=== PATIENT | male | born 1945 | race Caucasian/White ===

== ENCOUNTER 2017-05-11 17:47 | Inpatient (IN) | payer MEDICARE, MEDICAID, OTHER ==
[~2017-05-11] VITALS: Ht 182.9 cm; Wt 79.6 kg
[~2017-05-11 17:47] MED LIST: B12-1CHW SL; CHOL1CAP24 PO; DOXE25CA2 PO; FURO20 PO; LEVO137T2 PO; LIOT5; LORA0.5T PO
[2017-05-11] MEDS ORDERED: ALUMINUM/MAGNESIUM/SIMETH 30 ML CUP PO PRN (23:15)
[2017-05-11] MEDS ORDERED: LORazepam 2 MG/ML VIAL - age > 65 yrs IM PRN (23:15)
[2017-05-11] MEDS ORDERED: diphenhydrAMINE HCL 50 MG/ML VIAL - HS PRN IM (23:15)
[2017-05-11] MEDS ORDERED: diphenhydrAMINE HCL 50 MG CAP - HS PRN PO (23:15)
[2017-05-11] MEDS ORDERED: MAGNESIUM HYDROXIDE SUSP 30 ML CUP PO PRN (23:15)
[2017-05-11] MEDS ORDERED: ACETAMINOPHEN 325 MG TAB PO PRN (23:15)
[2017-05-11 23:54] LABS: BACTERIA, URINE RARE /hpf; BLOOD, URINE SMALL (NEG); COMMENT (UR) CULT NOT INDICATED; CULTURE IF INDICATED CULT NOT INDICATED; GLUCOSE,URINE NEG (NEG); GRANULAR CAST, URINE 1 /lpf; KETONE, URINE NEG (NEG); MUCUS URINE FEW /lpf (OCC); NITRITE,URINE NEG (NEG); URINE COLOR COLORLESS (YELLW/STRAW)
[2017-05-12] MEDS: LORazepam 0.5 MG TAB age > 65 yrs PO PRN (00:51)
[2017-05-12 03:10] VITALS: BP 152/66; PULSE 75; RESP 18; TEMP 97.6; O2SAT 95
[2017-05-12 05:46] VITALS: BP 111/56; PULSE 57; RESP 18; TEMP 98.3; O2SAT 95
--- NOTE | 2017-05-12 08:05 | HHI.HP ---
Provisional Diagnosis Admission Date May 11, 2017 at 22:30 [place] I. His depressive disorder, recurrent, severe without psychotic features Certification of Person's Competence To Provide Express and Informed Consent I have personally examined Enoc Acosta , a person being served at [facility] on, May 12, 2017 07:48. Express and informed consent means consent voluntarily given in writing, by a competent person, after sufficient explanation and disclosure of the subject matter involved to enable the person to make a knowing and willful decision without any element of force, fraud, deceit, duress, or other form of constraint or coercion. This person is 18 years of age or older, is not now known to be incompetent to consent to treatment with a guardian advocate, and does not have a health care surrogate or proxy currently making medical treatment decisions. I have found this person to be one of the following: [x] Competent to provide express and informed consent, as defined above, for voluntary admission to this facility and is competent to provide express and informed consent for treatment. He/she has the consistent capacity to make well reasoned, willful, and knowing decisions concerning his or her medical or mental health treatment. The person fully and consistently understands the purpose of the admission for examination/placement and is fully capable of personally exercising all rights assured under [place] Incompetent to provide express and informed consent to voluntary admission, and this is incompetent to provide express and informed consent to treatment. The person must be transferred to involuntary status and a petition for a guardian advocate filed with the Circuit Court. [] Refusing to provide express and informed consent to voluntary admission but is competent to provide express and informed consent for treatment. The person must be discharged or transferred to involuntary status. Form shall be completed within 24 hours of a person's arrival at the receiving facility and filed in the clinical record of each person: 1. Admitted on a voluntary basis 2. Permitted to provide express and informed consent to his/her own treatment 3. Allowed to transfer from involuntary to voluntary status 4. Prior to permitting a person to consent to his or her own treatment after having been previously found incompetent to consent to treatment. History of Present Illness Capacity: Has Capacity Psych Chief Complaint: recent suicide attempt via overdose HPI Patient is a 71-year-old man, single, no children, retired on Social Security income, living with brother, past psychiatric history of depression, anxiety disorder, panic disorder, 1 previous psychiatric hospitalization (to 713 ), one previous suicide attempt via overdose (2013), no previous history of self -interest behavior, was transferred from [facility] after recent suicide attempt via overdose with lorazepam and under Leach act for the same. Patient was transferred to the inpatient medical/psychiatry unit for further evaluation and management. Patient was seen with nurse today lying in hospital bed, cooperative interview, noted to be tearful at times. Patient states that he had a recent suicide attempt via overdose with lorazepam in his home stating "something told me I can't take this anymore" and refers to his recent suicide attempt as an act of desperation. Patient reports that for the past year he had been feeling sad and depressed but worsening over the past 1-2 months, with decreased sleep, appetite, energy, concentration, pleasure in hobbies, as well as feeling hopeless and helpless, with decreased maintenance of hygiene, and having suicidal ideations for the 1-1/2 months: No method or plan. Patient states that he had been feeling more more overwhelmed due to news of many family members becoming sick due to medical issues. 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 Patient recalls that he has the overdose of having taken the bottle of Ativan and had taken all of the pills and writing a suicide note which he left next to his bed which upon his brother walked into the room and found him lying on the bed and had noticed a note which he then called 911. Patient states that he will woken up in the hospital and feels tremendous amount of guilt due to this recent event. She currently reports feeling "better" but continues to feel sad and depressed along with suicide ideations, but denies any HI, AVH or delusions. Past psychiatric history: Previous psychiatric diagnoses of anxiety, depression , panic disorder, previous psychiatric authorization in 2013 for depression, previous suicide attempts but this is a 15 via overdose, no history of self- injurious behavior. Previous medication trials include Lexapro, Haldol, Ativan. Family psychiatric history: Aunt with depression, alcohol with Parkinson's disease, denies any suicides in the family. Substance use disorder: Tobacco (+), alcohol use "sell them", last time being 10 years ago. Patient denies any use of illicit drug use. Past medical history, hypothyroidism, fibromyalgia, benign prostatic hyperplasia Allergies, NKDA Social history: Single, no children, originally from [place], living in [place] since 1980, retired on Social Security income, no background, no legal history, no firearms in the home. Patient lives with his older brother Pacheco Anderson does not want him involved in his care at this time but agrees to have his other brother Terry acosta to be the certified personal chef. Yarsanism: Anglican Review of Systems Except as stated in HPI: all other systems reviewed are Neg Past Psych History Violence risk - others (6 mos) Low Violence risk - self (6 mos) Elevated risk due to recent suicide attempt and history of a prior suicide attempt. Substance Abuse History Drugs/Alcohol past 12 months Tobacco (+), alcohol use "sell them", last time being 10 years ago. Patient denies any use of illicit drug use. Past Family Social History Coded Allergies: No Known Allergies (Verified , 01/20/15) Reported Medications Liothyronine Sodium (Cytomel) Unknown Strength Tab, .XX DIRECTED, TAB 01/21/15 Methylcobalamin (V59-Iihulg) 1 Mg Chw, 6000 MCG SL DAILY, TAB 01/20/15 Cholecalciferol (Vitamin D3) 10,000 Unt Cap, 0.5 ML PO MWF 01/20/15 Levothyroxine Sodium (Levothyroxine 137 mcg) 137 Mcg Tab, 137 MCG PO DAILY, TAB 01/20/15 Doxepin 25 mg (Doxepin 25 mg) 25 Mg Cap, 10 MG PO DAILY, CAP 01/20/15 Doxepin 25 mg (Doxepin 25 mg) 25 Mg Cap, 25 MG PO DAILY, CAP 01/20/15 Lorazepam (Lorazepam) 0.5 Mg Tab, 0.5 MG PO BID, TAB 01/20/15 Furosemide (Lasix 20 Mg Tab) 20 Mg Tab, 20 MG PO DAILY, TAB 01/20/15 Current Medications Medications (Trade) Dose Ordered Sig/Ymlene Route Start Time Stop Time Status Last Admin (Ativan) 0.5 mg Q12H PRN PO 05/11/17 23:15 05/12/17 00:51 (Ativan Inj) 0.5 mg Q12H PRN IM 05/11/17 23:15 (Benadryl) 50 mg HS PRN PO 05/11/17 23:15 (Benadryl Inj) 50 mg HS PRN IM 05/11/17 23:15 (Tylenol) 650 mg Q4H PRN PO 05/11/17 23:15 (Milk Of Magnesia Liq) 30 ml DAILY PRN PO 05/11/17 23:15 (Mag-Al Plus Susp Liq) 30 ml Q6H PRN PO 05/11/17 23:15 (Habitrol 21 Mg Patch.24 Hr) 1 patch DAILY T-DERMAL 05/12/17 09:00 Miscellaneous Information 1 HS T-DERMAL 05/12/17 21:00 Family Psych History Aunt with depression, alcohol with Parkinson's disease, denies any suicides in the family. Social History Single, no children, originally from [place], living in [place] since 1980, retired on Social Security income, no background, no legal history, no firearms in the home. Patient lives with his older brother Pacheco Anderson does not want him involved in his care at this time but agrees to have his other brother Terry acosta to be the certified personal chef. Yarsanism: Anglican Patient's Strengths (min. 2) Verbal and communicative Physical Exam Patient not noted to be in acute distress, no gross motor abnormalities, no tremors or EPS, no noted psychomotor retardation or agitation. Vital Signs Vital Signs Date Time Temp Pulse Resp B/P (MAP) Pulse Ox O2 Delivery O2 Flow Rate FiO2 05/12/17 05:46 98.3 57 18 111/56 (74) 95 I/O 05/12/17 05/12/17 05/13/17 08:00 16:00 00:00 Intake Total 0 ml Output Total 1400 ml Balance -1400 ml Lab Results Labs reviewed. Test 05/11/17 23:35 Urine Color COLORLESS Urine Turbidity CLEAR Urine pH 7.0 Urine Specific [place] 1.002 Urine Protein NEG mg/dL Urine Glucose (UA) NEG mg/dL Urine Ketones NEG mg/dL Urine Occult Blood SMALL Urine Nitrite NEG Urine Bilirubin NEG Urine Urobilinogen LESS THAN 2.0 MG/DL Urine Leukocyte Esterase NEG Urine RBC 1 /hpf Urine WBC LESS THAN 1 /hpf Urine Bacteria RARE /hpf Urine Granular Casts 1 /lpf Urine Mucus FEW /lpf Microscopic Urinalysis Comment CULT NOT INDICATED Mental Status Examination Appearance: Appropriate Consciousness: Alert Orientation: Person, Place, Date/Time Motor Activity: Normal gait Speech: Unremarkable Language: Adequate Fund of Knowledge: Adequate Attention and Concentration: Adequate Memory: Unremarkable (except for events after overdose) Mood: Appropriate Affect: Sad (crying at times during interview) Thought Process & Associations: Intact, Linear Thought Content: Appropriate Hallucination Type: None Delusion Type: None Suicidal Ideation: Yes Suicidal Plan: No Suicidal Intention: No Homicidal Ideation: No Homicidal Plan: No Homicidal Intention: No Insight: Fair Judgment: Poor Assessment & Plan Problem List: (1) Severe episode of recurrent major depressive disorder, without psychotic features ICD Codes: F33.2 - Major depressive disorder, recurrent severe without psychotic features Assessment & Plan Patient is a 71-year-old man who carries a diagnosis of depression, anxiety, panic disorder with agoraphobia was brought into the hospital under Leach act for recent suicide attempt via overdose with Ativan. 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 We'll start sertraline 50 mg by mouth daily for depression, buspirone 5 mg by mouth 3 times a day, hydroxyzine 25 mg by mouth when necessary every 6 hours for breakthrough anxiety. Collateral information pending. Requisitions as per primary medical team. Discharge planning in progress Discharge Planning Patient like to return back to his residence when psychiatrically stable. Helder Tna MD May 12, 2017 08:05
--- NOTE | 2017-05-12 08:54 | EKG ---
Date Performed: 05/12/2017 Time Performed: 07:21:17 PTAGE: 71 years EKG: Sinus rhythm NORMAL ECG PREVIOUS TRACING : 01/20/2015 23.09 No significant change from previous tracing noted. DOCTOR: Mustapha Plunkett Interpretating Date/Time 05/12/2017 08:53:06
[2017-05-12] MEDS: busPIRone HCL 5 MG TAB PO SCH ×2 (09:00→21:48)
[2017-05-12] MEDS ORDERED: SERTRALINE HCL 50 MG TAB PO SCH (09:00)
[2017-05-12] MEDS: NICOTINE 21 MG/24 HR PATCH T-DERMAL SCH (09:00)
[2017-05-12] MEDS ORDERED: VENLAFAXINE HCL 37.5 MG TAB PO SCH (16:00)
[2017-05-12 18:11] VITALS: BP 129/60; PULSE 62; RESP 16; TEMP 98.5; O2SAT 95
[2017-05-12] MEDS: REMOVE OLD NICOTINE PATCH T-DERMAL SCH (21:00)
[2017-05-12] MEDS: clonazePAM 1 MG TAB PO PRN (21:48)
[2017-05-13 04:37] VITALS: BP 119/56; PULSE 66; RESP 16; TEMP 97.9; O2SAT 98
[2017-05-13] MEDS: clonazePAM 1 MG TAB PO PRN ×2 (06:05→19:47)
[2017-05-13] MEDS: busPIRone HCL 5 MG TAB PO SCH ×2 (08:58→19:10)
[2017-05-13] MEDS: NICOTINE 21 MG/24 HR PATCH T-DERMAL SCH (08:59)
--- NOTE | 2017-05-13 15:55 | HHI.PYPN ---
Subjective Remarks Patient was seen today for psychiatric reevaluation along with nursing charge Fransico. Patient was found calm, cooperative, laying down his bed. Patient reports that today he feels a little better. However, he says that they used to be very depressed, with low energy, sleeping very poorly at night, with lack of motivation, and having recurrent suicidal thoughts "because life is not worth it anymore for me". Patient was able to contract for safety in the unit. He says that he would like to get better, and he will try to do the best his medications and to integrate in the activities of the unit. Patient has been compliant with his medications, no significant side effects reported. Oriented 3, no attention deficit, no fluctuation of consciousness present. Chief Complaint: recent suicide attempt via overdose Mental Status Examination Appearance: Appropriate Consciousness: Alert Orientation: Person, Place, Date/Time Motor Activity: Normal gait Speech: Unremarkable Language: Adequate Fund of Knowledge: Adequate Attention and Concentration: Adequate Memory: Unremarkable (except for events after overdose) Mood: Appropriate Affect: Sad (crying at times during interview) Thought Process & Associations: Intact, Linear Thought Content: Appropriate Hallucination Type: None Delusion Type: None Suicidal Ideation: Yes Suicidal Plan: No Suicidal Intention: No Homicidal Ideation: No Homicidal Plan: No Homicidal Intention: No Insight: Fair Judgment: Poor Results Vitals/IOs Vital Signs Date Time Temp Pulse Resp B/P (MAP) Pulse Ox O2 Delivery O2 Flow Rate FiO2 05/13/17 04:37 97.9 66 16 119/56 (77) 98 Intake and Output 05/13/17 05/13/17 05/14/17 08:00 16:00 00:00 Intake Total 240 ml 460 ml Output Total 2450 ml 1100 ml Balance -2210 ml -640 ml Assessment & Plan Problem List: (1) Severe episode of recurrent major depressive disorder, without psychotic features ICD Codes: F33.2 - Major depressive disorder, recurrent severe without psychotic features Assessment & Plan: We will increase Effexor to 75 mg for depression. Will add Benadryl 50 mg at bedtime when necessary insomnia. Extensive support, motivation and psychoeducation provided. Assessment & Plan Estimated LOS: days Justification for Cont. Inpt. Patient is acutely depressed,, suicidal, needs to continue psychiatric hospitalization for stabilization Ray Acosta MD May 13, 2017 15:55
[2017-05-13] MEDS: VENLAFAXINE HCL 37.5 MG TAB PO SCH (16:32)
[2017-05-13 18:05] VITALS: BP 121/56; PULSE 61; RESP 17; TEMP 98.5; O2SAT 96
[2017-05-13] MEDS: REMOVE OLD NICOTINE PATCH T-DERMAL SCH (21:00)
[2017-05-14] MEDS: clonazePAM 1 MG TAB PO PRN ×2 (04:34→14:07)
[2017-05-14 06:12] VITALS: BP 131/59; PULSE 51; RESP 18; TEMP 97.8; O2SAT 94
[2017-05-14] MEDS: busPIRone HCL 5 MG TAB PO SCH (09:22)
[2017-05-14] MEDS: NICOTINE 21 MG/24 HR PATCH T-DERMAL SCH (09:23)
--- NOTE | 2017-05-14 09:30 | PD.CONS ---
HPI Service [facility] Hospitalists Consult Requested By Psychiatric services Reason for Consult Medical management Primary Care Physician Non-Staff Diagnoses: History of Present Illness Written by Piper Segal, acting as scribe for Dr. Saucedo on 05/14/17 at 09:16. This is a 71-year-old male with a past medical history significant for depression with previous suicide attempt in 2013, panic disorder, severe anxiety , fibromyalgia, agoraphobia and hypothyroidism who was admitted under Leach act to [facility] after attempting suicide by overdosing on lorazepam. Patient was transferred to [facility] and has been admitted to the inpatient MedPsych unit. Hospitalist services have been consulted for medical management. Patient seen and examined today. Patient reports urinary complaints preceding his admission to the hospital and had been on Flomax prescribed by his primary care physician Dr. Barton. He has not seen a urologist recently. Patient states he has burning pain inside of his penis as well as feels a tightness in his prostate. He also endorses chest pressure which he states is constant and chronic. He does endorse its worsened over the years and is aggravated with lying supine. While in [facility] patient had issues with urinary retention a Eaton catheter was placed. Patient endorses several episodes of blood in the urine after the Eaton was placed. CT of the abdomen and pelvis was done and the report was reviewed which shows a mildly enlarged prostate with probable chronic bladder obstruction resulting in bladder wall thickening and a small 1.2 cm enhancing mass arising from the left lateral bladder wall highly suspicious for urethral carcinoma. A urology consult was requested while patient was in [facility] patient was transferred to our facility prior to the consultation being completed. Additionally, while for the hospital CT head was obtained which is negative for any acute intracranial process. Urine toxicology was negative. Alcohol blood level was less than 10 and acetaminophen level was less than 5. He was noted to have low blood pressure 98/37 at his presentation to [facility] ED with EKG revealing sinus bradycardia. Patient is concerned that he has not had his levothyroxine for the past 10 days. Review of Systems Except as stated in HPI: all other systems reviewed are Neg Past Family Social History Allergies: Coded Allergies: No Known Allergies (Verified , 01/20/15) Past Medical History Major depression with history of previous suicide attempt 2013 Panic disorder Severe anxiety Agoraphobia Hypothyroidism BPH Tobaccoism Past Surgical History Right inguinal hernia repair 2 Reported Medications Methylcobalamin (A70-Odjpen) 1 Mg Chw, 6000 MCG SL DAILY, TAB 01/20/15 Cholecalciferol (Vitamin D3) 10,000 Unt Cap, 0.5 ML PO MWF 01/20/15 Levothyroxine Sodium (Levothyroxine 137 mcg) 137 Mcg Tab, 137 MCG PO DAILY, TAB 01/20/15 Doxepin 25 mg (Doxepin 25 mg) 25 Mg Cap, 10 MG PO DAILY, CAP 01/20/15 Doxepin 25 mg (Doxepin 25 mg) 25 Mg Cap, 25 MG PO DAILY, CAP 01/20/15 Lorazepam (Lorazepam) 0.5 Mg Tab, 0.5 MG PO BID, TAB 01/20/15 Furosemide (Lasix 20 Mg Tab) 20 Mg Tab, 20 MG PO DAILY, TAB 01/20/15 Active Ordered Medications Current Medications Medications (Trade) Dose Ordered Sig/Mylene Route Start Time Stop Time Status Last Admin (Ativan) 0.5 mg Q12H PRN PO 05/11/17 23:15 05/12/17 00:51 (Ativan Inj) 0.5 mg Q12H PRN IM 05/11/17 23:15 (Benadryl) 50 mg HS PRN PO 05/11/17 23:15 05/12/17 21:48 (Benadryl Inj) 50 mg HS PRN IM 05/11/17 23:15 (Tylenol) 650 mg Q4H PRN PO 05/11/17 23:15 05/13/17 22:30 (Milk Of Magnesia Liq) 30 ml DAILY PRN PO 05/11/17 23:15 (Mag-Al Plus Susp Liq) 30 ml Q6H PRN PO 05/11/17 23:15 (Habitrol 21 Mg Patch.24 Hr) 1 patch DAILY T-DERMAL 05/12/17 09:00 05/13/17 08:59 Miscellaneous Information 1 HS T-DERMAL 05/12/17 21:00 05/13/17 21:00 (Buspar) 5 mg Q12HR PO 05/12/17 09:00 05/13/17 19:10 (KlonoPIN) 1 mg Q8H PRN PO 05/12/17 21:45 05/14/17 04:34 (Effexor) 75 mg DAILY@1600 PO 05/13/17 16:00 05/13/17 16:32 Family History Brother, kidney cancer, age 82 Brother, colitis Social History Patient to history tobacco use of one pack per day. He denies any alcohol use or illicit drug use. Patient lives with his 82-year-old brother and are each other's caretakers. Physical Exam Vital Signs Vital Signs Date Time Temp Pulse Resp B/P (MAP) Pulse Ox O2 Delivery O2 Flow Rate FiO2 05/14/17 06:12 97.8 51 18 131/59 (83) 94 05/13/17 18:05 98.5 61 17 121/56 (77) 96 Physical Exam GENERAL: This is a well-nourished, well-developed anxious appearing patient, in no apparent distress. Awake and alert. Witnessed ambulating with walker in hospital room. A&Ox3. SKIN: No rashes, ecchymoses or lesions. Cool and dry. HEAD: Atraumatic. Normocephalic. No temporal or scalp tenderness. EYES: Pupils equal round and reactive. Extraocular motions intact. No scleral icterus. No injection or drainage. ENT: Nose without bleeding or purulent drainage. Throat without erythema, tonsillar hypertrophy or exudate. Uvula midline. Airway patent. NECK: Trachea midline. No lymphadenopathy. Supple, nontender, no meningeal signs. CARDIOVASCULAR: Regular rate and rhythm without murmurs, gallops, or rubs. RESPIRATORY: Clear to auscultation. Breath sounds equal bilaterally. No wheezes , rales, or rhonchi. GASTROINTESTINAL: Abdomen soft, non-tender, nondistended. No hepato-splenomegaly , or palpable masses. No guarding. GENITOURINARY: Eaton catheter in place with clear yellow urine in the bag. MUSCULOSKELETAL: Extremities without clubbing, cyanosis, or edema. No joint tenderness, effusion, or edema noted. No calf tenderness. NEUROLOGICAL: Awake and alert. Able to move all extremities. Normal speech. Assessment and Plan Assessment and Plan 71-year-old male with a past medical history significant for depression with previous suicide attempt in 2013, panic disorder, severe anxiety, fibromyalgia, agoraphobia and hypothyroidism who was admitted under Leach act to [facility] after attempting suicide by overdosing on lorazepam. Patient was transferred to [facility] and has been admitted to the inpatient MedPsych unit. Hospitalist services have been consulted for medical management. Major depression with suicide attempt by overdosing on lorazepam Severe anxiety Panic disorder Agoraphobia - Management per psychiatric team Urinary retention Suspected chronic bladder outlet obstruction 1.2 cm mass suspicious for urothelial carcinoma noted on CT the abdomen and pelvis obtained in [facility] - History of tobacco abuse - Continue Eaton catheter for now - Resume home Flomax 0.4 mg daily - Consult urology Hypothyroidism - Resume patient's home dose of levothyroxine - Obtain TSH Ongoing tobaccoism - Discussed smoking cessation - Continue nicotine patch DVT prophylaxis - Patient is ambulatory This note was transcribed by anthony Segal. I, Dr. Pacheco Saucedo personally performed the history, physical exam, and medical decision making; and confirmed the accuracy of the information in the transcribed note. Authenticated by Dr. Pacheco Saucedo on 05/14/17 at 10:03. Discussed Condition With Patient, JELENA Bateman Shannon PA May 14, 2017 09:30 Pacheco Saucedo MD May 14, 2017 10:03
--- NOTE | 2017-05-14 13:10 | MB ---
cc: BETITO THOMAS DATE OF CONSULTATION: 05/14/2017 REASON FOR CONSULTATION: HISTORY OF PRESENT ILLNESS: Mr. Mo is a 71-year-old male who was initially admitted to [facility] and apparently due to suicidal ideation was then transferred over to [place]. While at [facility] by report from the chart, CT scan was performed demonstrating an enlarged prostate with a possible 1.2 cm enhancing mass arising from the left lateral bladder wall, suspicious for urothelial carcinoma. The patient does admit to a long history of smoking and has had difficulty with urination. He gets up approximately 3 to 4 times at night with a weak stream. He also notes that the stream will start and stop at times and has post void dribbling. He does have a family history of prostate cancer in his father and uncles. Presently he has a Eaton catheter in place and had been on Flomax in the past but is not on Flomax as an outpatient. PAST MEDICAL HISTORY: 1. Major depression with suicide attempt. 2. Panic disorder. 3. Severe anxiety. 4. Hypothyroidism. 5. BPH with obstruction. 6. Heavy tobacco use. PAST SURGICAL HISTORY: 1. Inguinal hernia repair on the right side. MEDICATIONS: Please refer to the chart. ALLERGIES: NO KNOWN DRUG ALLERGIES. FAMILY HISTORY: Notable for prostate cancer in his father. SOCIAL HISTORY: Long history of smoking one pack per day for many years. Denies any drinking or alcohol use. REVIEW OF SYSTEMS: He denies chest pain, denies shortness of breath. He admits to anxiety and severe depression. Denies gait disturbances. Denies hematuria, denies infections. The remaining review of systems were performed and were negative. PHYSICAL EXAMINATION: VITAL SIGNS: Temperature 97.8, heart rate 51, respiratory rate 18, blood pressure 131/59. GENERAL: The patient is a well-developed, well-nourished 71 year-old male in no acute distress. HEENT: Normocephalic, atraumatic. Pupils equal, round and reactive to light. Extraocular movements intact. NECK: Supple. HEART: Regular rate and rhythm. LUNGS: Clear. ABDOMEN: Soft, non-tender, non-distended. : Circumcised phallus. Testes are descended. Prostate is 50 grams on exam, smooth. There is no nodularity. Eaton catheter in place. EXTREMITIES: No clubbing, cyanosis or edema. NEUROLOGIC: Cranial nerves II through XII intact. PSYCH: Anxiety present. IMAGING STUDIES A renal bladder ultrasound has been ordered. ASSESSMENT: The patient is a 71 year-old male with findings of a BPH with bladder outlet obstruction, and findings of a suspicious mass in the bladder and left lateral wall. Will recommend renal bladder ultrasound. Will restart Flomax. Will hold Benadryl as this will cause urinary retention. Will follow with you. If bladder tumor is present, may need to have cystoscopy. Thank you for the consultation and allowing me to participate in the care of this patient. Mars MOREJON /11:26 AM /12:58 PM
--- NOTE | 2017-05-14 13:17 | HHI.PYPN ---
Subjective Remarks Patient was seen today for psychiatric reevaluation, patient was found ambulating and pacing in his room, patient reports increased anxiety, he recently had a digital rectal exam "that may be very anxious", and he says that he has been informed that he needs another ultrasound in the process of determining if he has a malignant mass in the bladder. Patient reports that he keeps thinking that the worst for him is to be come. He persists in the catastrophic thinking that he has cancer and he is going to . Patient reports sad mood, anhedonia, hopelessness, helplessness, frequent panic attacks during the day, suicidal thoughts. At this moment he denies suicidal ideation, he contracted for safety in the unit. Patient is very pleasant, calm and cooperative. Compliant with medication, no significant side effects reported. Chief Complaint: recent suicide attempt via overdose Review of Systems Psychiatric: COMPLAINS OF: Anxiety Mental Status Examination Appearance: Appropriate Consciousness: Alert Orientation: Person, Place, Date/Time Motor Activity: Normal gait Speech: Unremarkable Language: Adequate Fund of Knowledge: Adequate Attention and Concentration: Adequate Memory: Unremarkable (except for events after overdose) Mood: Appropriate Affect: Sad (crying at times during interview), Anxious Thought Process & Associations: Intact, Linear Thought Content: Appropriate Hallucination Type: None Delusion Type: None Suicidal Ideation: Yes Suicidal Plan: No Suicidal Intention: No Homicidal Ideation: No Homicidal Plan: No Homicidal Intention: No Insight: Fair Judgment: Poor Results Vitals/IOs Vital Signs Date Time Temp Pulse Resp B/P (MAP) Pulse Ox O2 Delivery O2 Flow Rate FiO2 05/14/17 06:12 97.8 51 18 131/59 (83) 94 Intake and Output 05/14/17 05/14/17 05/15/17 08:00 16:00 00:00 Intake Total 360 ml Output Total 1150 ml Balance -790 ml Assessment & Plan Problem List: (1) Severe episode of recurrent major depressive disorder, without psychotic features ICD Codes: F33.2 - Major depressive disorder, recurrent severe without psychotic features Assessment & Plan: Patient continues to show symptoms of moderate to severe depression. Yesterday I increased Effexor to 75 mg daily, today we will increase BuSpar to 10 mg 3 times a day for anxiety. Brief supportive psychotherapy and psychoeducation provided. Hospitalist input and recommendations appreciated. Assessment & Plan Estimated LOS: days Justification for Cont. Inpt. Patient needs to continue psychiatric hospitalization for stabilization and safety. Ray Acosta MD May 14, 2017 13:17
[2017-05-14] MEDS: TAMSULOSIN HCL 0.4 MG CAP PO SCH (14:08)
[2017-05-14] MEDS: busPIRone HCL 10 MG TAB PO SCH ×2 (14:08→22:05)
[2017-05-14] MEDS: VENLAFAXINE HCL 37.5 MG TAB PO SCH (15:24)
--- NOTE | 2017-05-14 15:31 | RADRPT ---
EXAM DATE/TIME: 05/14/2017 13:31 [place] COMPARISON: No previous studies available for comparison. INDICATIONS : Mass in bladder. MEDICAL HISTORY : Hypothyroidism. Fibromyalgia. Diabetes. Diverticulitis. SURGICAL HISTORY : Inguinal hernia repair. ENCOUNTER: Initial ACUITY: 1 day PAIN SCORE: 5/10 LOCATION: Bilateral flank MEASUREMENTS: RIGHT KIDNEY: 9.7 x 5.4 x 5.5 cm LEFT KIDNEY: 10.6 x 4.3 x 4.8 cm FINDINGS: Ultrasound of the kidneys demonstrate normal size shape and echogenicity. No hydronephrosis or mass l esions are identified. 1 cm hyperechoic mass is present within the bladder. Malignancy is not exclude d. Cystoscopy is recommended for further evaluation if clinically indicated. CONCLUSION: 1. Unremarkable ultrasound examination of the kidneys. 2. 1 cm mass within the bladder. Cystoscopy is recommended for further evaluation if clinically indic ated.8 Andres Gee MD on May 14, 2017 at 15:28 Board Certified Radiologist. This report was verified electronically.
[2017-05-14 17:10] VITALS: BP 99/49; PULSE 58; RESP 17; TEMP 99.1; O2SAT 95
[2017-05-14] MEDS: LORazepam 0.5 MG TAB age > 65 yrs PO PRN (20:39)
[2017-05-14] MEDS: REMOVE OLD NICOTINE PATCH T-DERMAL SCH (20:41)
[2017-05-15 05:58] VITALS: BP 116/54; PULSE 63; RESP 18; TEMP 98.2; O2SAT 95
[2017-05-15] MEDS: busPIRone HCL 10 MG TAB PO SCH ×3 (06:03→22:19)
[2017-05-15] MEDS: LEVOTHYROXINE SODIUM 75 MCG TAB PO SCH (06:03)
[2017-05-15] MEDS: TAMSULOSIN HCL 0.4 MG CAP PO SCH (08:11)
[2017-05-15] MEDS: clonazePAM 1 MG TAB PO PRN (08:11)
[2017-05-15] MEDS: NICOTINE 21 MG/24 HR PATCH T-DERMAL SCH (09:00)
--- NOTE | 2017-05-15 09:14 | HHI.PR ---
Subjective Patient symptoms today Pt seen and examined. R/B sono reviewed. BT present. Objective Vital Signs Vital Signs Date Time Temp Pulse Resp B/P (MAP) Pulse Ox O2 Delivery O2 Flow Rate FiO2 05/15/17 05:58 98.2 63 18 116/54 (74) 95 05/14/17 17:10 99.1 58 17 99/49 (66) 95 Intake & Output 05/15/17 05/15/17 06:59 18:59 Intake Total 840 ml Output Total 1080 ml Balance -240 ml Intake Oral 840 ml Output Urine Total 1080 ml Objective Remarks Abd:soft,nt,nd Eaton: urine clear Medications and IVs Current Medications Medications (Trade) Dose Ordered Sig/Mylene Route Start Time Stop Time Status Last Admin (Ativan) 0.5 mg Q12H PRN PO 05/11/17 23:15 05/14/17 20:39 (Ativan Inj) 0.5 mg Q12H PRN IM 05/11/17 23:15 (Benadryl) 50 mg HS PRN PO 05/11/17 23:15 05/12/17 21:48 (Benadryl Inj) 50 mg HS PRN IM 05/11/17 23:15 (Tylenol) 650 mg Q4H PRN PO 05/11/17 23:15 05/13/17 22:30 (Milk Of Magnesia Liq) 30 ml DAILY PRN PO 05/11/17 23:15 (Mag-Al Plus Susp Liq) 30 ml Q6H PRN PO 05/11/17 23:15 (Habitrol 21 Mg Patch.24 Hr) 1 patch DAILY T-DERMAL 05/12/17 09:00 05/14/17 09:23 Miscellaneous Information 1 HS T-DERMAL 05/12/17 21:00 05/14/17 20:41 (KlonoPIN) 1 mg Q8H PRN PO 05/12/17 21:45 05/15/17 08:11 (Effexor) 75 mg DAILY@1600 PO 05/13/17 16:00 05/14/17 15:24 (Synthroid) 75 mcg DAILY@0600 PO 05/15/17 06:00 05/15/17 06:03 (Flomax) 0.4 mg DAILY PO 05/14/17 12:00 05/15/17 08:11 (Buspar) 10 mg Q8HR PO 05/14/17 14:00 05/15/17 06:03 Assessment and Plan Assessment and Plan 71 y.o male with findings of bladder tumor on US Plan for cystoscopy; TURBT in AM NPO after Mars Narayanan DO May 15, 2017 09:14
--- NOTE | 2017-05-15 10:47 | HHI.FPPN ---
Subjective Remarks TEARFUL PANICKY D/W RN Objective Vitals Vital Signs Date Time Temp Pulse Resp B/P (MAP) Pulse Ox O2 Delivery O2 Flow Rate FiO2 05/15/17 05:58 98.2 63 18 116/54 (74) 95 05/14/17 17:10 99.1 58 17 99/49 (66) 95 I/O 05/14/17 05/14/17 05/14/17 05/15/17 05/15/17 05/15/17 07:00 15:00 23:00 07:00 15:00 23:00 Intake Total 360 ml 600 ml 240 ml 480 ml Output Total 1150 ml 975 ml 1200 ml 480 ml Balance -790 ml -975 ml -600 ml -240 ml 480 ml Intake Oral 360 ml 600 ml 240 ml 480 ml Output Urine Total 1150 ml 975 ml 1200 ml 480 ml Objective Remarks GENERAL: SKIN: Warm and dry. HEAD: Atraumatic. Normocephalic. EYES: Pupils equal and round. No scleral icterus. No injection or drainage. ENT: No nasal bleeding or discharge. Mucous membranes pink and moist. NECK: Trachea midline. No JVD. CARDIOVASCULAR: Regular rate and rhythm. RESPIRATORY: No accessory muscle use. Clear to auscultation. Breath sounds equal bilaterally. GASTROINTESTINAL: Abdomen soft, non-tender, nondistended. Hepatic and splenic margins not palpable. SILVA CLEAR MUSCULOSKELETAL: Extremities without clubbing, cyanosis, or edema. No obvious deformities. NEUROLOGICAL: Awake and alert. No obvious cranial nerve deficits. Motor grossly within normal limits. 3 out of 5 muscle strength in the arms and legs. Normal speech. PSYCHIATRIC: Appropriate mood and affect; insight and judgment normal. Medications and IVs Current Medications Medications (Trade) Dose Ordered Sig/Mylene Route Start Time Stop Time Status Last Admin (Ativan) 0.5 mg Q12H PRN PO 05/11/17 23:15 05/14/17 20:39 (Ativan Inj) 0.5 mg Q12H PRN IM 05/11/17 23:15 (Benadryl) 50 mg HS PRN PO 05/11/17 23:15 05/12/17 21:48 (Benadryl Inj) 50 mg HS PRN IM 05/11/17 23:15 (Tylenol) 650 mg Q4H PRN PO 05/11/17 23:15 05/13/17 22:30 (Milk Of Magnesia Liq) 30 ml DAILY PRN PO 05/11/17 23:15 (Mag-Al Plus Susp Liq) 30 ml Q6H PRN PO 05/11/17 23:15 (Habitrol 21 Mg Patch.24 Hr) 1 patch DAILY T-DERMAL 05/12/17 09:00 05/14/17 09:23 Miscellaneous Information 1 HS T-DERMAL 05/12/17 21:00 05/14/17 20:41 (KlonoPIN) 1 mg Q8H PRN PO 05/12/17 21:45 05/15/17 08:11 (Effexor) 75 mg DAILY@1600 PO 05/13/17 16:00 05/14/17 15:24 (Synthroid) 75 mcg DAILY@0600 PO 05/15/17 06:00 05/15/17 06:03 (Flomax) 0.4 mg DAILY PO 05/14/17 12:00 05/15/17 08:11 (Buspar) 10 mg Q8HR PO 05/14/17 14:00 05/15/17 06:03 A/P Assessment and Plan 71-year-old male with a past medical history significant for depression with previous suicide attempt in 2013, panic disorder, severe anxiety, fibromyalgia, agoraphobia and hypothyroidism who was admitted under Leach act to [facility] after attempting suicide by overdosing on lorazepam. Patient was transferred to [facility] and has been admitted to the inpatient MedPsych unit. SUICIDAL Major depression with suicide attempt by overdosing on lorazepam Severe anxiety Panic disorder Agoraphobia - Management per psychiatric team Urinary retention Suspected chronic bladder outlet obstruction 1.2 cm mass suspicious for urothelial carcinoma noted on CT the abdomen and pelvis obtained in [facility] - History of tobacco abuse - Continue Silva catheter for now - Resume home Flomax 0.4 mg daily - Consult urology. TURBT IN AM. AM LABS Hypothyroidism - Resume patient's home dose of levothyroxine - Obtain TSH Ongoing tobaccoism - Discussed smoking cessation - Continue nicotine patch DVT prophylaxis - Patient is ambulatory Dominik Barton MD May 15, 2017 10:47
[2017-05-15] MEDS: VENLAFAXINE HCL 37.5 MG TAB PO SCH (16:00)
[2017-05-15 16:10] VITALS: BP 109/68; PULSE 61; RESP 17; TEMP 98; O2SAT 96
--- NOTE | 2017-05-15 16:10 | HHI.PYPN ---
Subjective Remarks Patient seen for follow-up, chart review. Patient was found sitting in hospital bed eating lunch after he had per dissipating groups this morning. Patient states that he is having more depression today that before due to his recent diagnosis of having bladder mass. He reports he spoke with urology team this morning about the finding and possibly having surgery tomorrow. Patient states that over the weekend he had some difficulty with sleep but was better last night. Patient states that he had a panic attack on Monday but was better on Monday. Patient reports expressing his brother to come visit him due to his recent diagnosis of bladder mass and was unsure whether it was in a car some more stress taking them upset. Patient continues to report feeling depressed continues to have suicidal ideations. Chief Complaint: recent suicide attempt via overdose Review of Systems Except as stated in HPI: all other systems reviewed are Neg Mental Status Examination Appearance: Appropriate Consciousness: Alert Orientation: Person, Place, Date/Time Motor Activity: Normal gait Speech: Unremarkable Language: Adequate Fund of Knowledge: Adequate Attention and Concentration: Adequate Memory: Unremarkable (except for events after overdose) Mood: Appropriate Affect: Sad (crying at times during interview), Anxious Thought Process & Associations: Intact, Linear Thought Content: Appropriate Hallucination Type: None Delusion Type: None Suicidal Ideation: Yes Suicidal Plan: No Suicidal Intention: No Homicidal Ideation: No Homicidal Plan: No Homicidal Intention: No Insight: Fair Judgment: Poor Results Vitals/IOs Vital Signs Date Time Temp Pulse Resp B/P (MAP) Pulse Ox O2 Delivery O2 Flow Rate FiO2 05/15/17 05:58 98.2 63 18 116/54 (74) 95 Intake and Output 05/15/17 05/15/17 05/15/17 07:59 15:59 23:59 Intake Total 240 ml 1560 ml Output Total 480 ml Balance -240 ml 1560 ml Assessment & Plan Problem List: (1) Severe episode of recurrent major depressive disorder, without psychotic features ICD Codes: F33.2 - Major depressive disorder, recurrent severe without psychotic features Assessment & Plan Patient continued to report feeling depressed continues to have suicidal ideations. Patient had recent urology consult pertaining to bladder mass found on imaging studies with plan surgery tomorrow morning for excision of mass. A urology consult appreciated. Will discontinue diphenhydramine as he could cause further urinary retention, will start trazodone 50 mg by mouth at bedtime for insomnia, current rest of medications. Patient to be nothing by mouth past midnight due to upcoming surgery tomorrow. Recommendations were primary medical team. Discharge planning in progress Justification for Cont. Inpt. At risk for further decompensation if at lower level of care. Discharge Planning Patient to return back home with brother with psychiatric stable Helder Tan MD May 15, 2017 16:10
[2017-05-15] MEDS: REMOVE OLD NICOTINE PATCH T-DERMAL SCH (21:00)
[2017-05-15] MEDS: traZODone HCL 50 MG TAB PO SCH (22:19)
[2017-05-16 05:31] VITALS: BP 113/54; PULSE 67; RESP 18; TEMP 97.8; O2SAT 94
[2017-05-16] MEDS: busPIRone HCL 10 MG TAB PO SCH ×4 (06:19→22:56)
[2017-05-16] MEDS: LEVOTHYROXINE SODIUM 75 MCG TAB PO SCH (06:19)
[2017-05-16] MEDS: LORazepam 0.5 MG TAB age > 65 yrs PO PRN (06:19)
--- NOTE | 2017-05-16 08:32 | HHI.PYPN ---
Subjective Remarks Patient seen for follow, chart review. Patient is found ambulating around units engage in conversations with other patients and staff. Patient states that he slept much better last night and feels more rested. Patient reports that his mood is "up and down" and feeling somewhat anxious about the upcoming surgery later today. Patient states that he had a wonderful visit with his brothers last evening. Patient reports feeling more positive stating that he would repeat himself "I can do this" referring to getting to the surgery moving on. Patient states that he has not had any suicide ideations recently and was feeling surprised that he was feeling more positive considering recent diagnosis of bladder mass. Chief Complaint: recent suicide attempt via overdose Review of Systems Except as stated in HPI: all other systems reviewed are Neg Mental Status Examination Appearance: Appropriate Consciousness: Alert Orientation: Person, Place, Date/Time Motor Activity: Normal gait Speech: Unremarkable Language: Adequate Fund of Knowledge: Adequate Attention and Concentration: Adequate Memory: Unremarkable (except for events after overdose) Mood: Appropriate Affect: Sad (less so today), Anxious Thought Process & Associations: Intact, Linear Thought Content: Appropriate Hallucination Type: None Delusion Type: None Suicidal Ideation: Yes (denies today) Suicidal Plan: No Suicidal Intention: No Homicidal Ideation: No Homicidal Plan: No Homicidal Intention: No Insight: Fair Judgment: Poor Results Vitals/IOs Vital Signs Date Time Temp Pulse Resp B/P (MAP) Pulse Ox O2 Delivery O2 Flow Rate FiO2 05/16/17 05:31 97.8 67 18 113/54 (73) 94 Intake and Output 05/16/17 05/16/17 05/17/17 08:00 16:00 00:00 Intake Total 0 ml Output Total 1800 ml Balance -1800 ml Assessment & Plan Problem List: (1) Severe episode of recurrent major depressive disorder, without psychotic features ICD Codes: F33.2 - Major depressive disorder, recurrent severe without psychotic features Assessment & Plan Patient continues with depressed mood and anxiety, responding well to trazodone at night. We'll continue current treatment regimen. Patient schedules for excision of bladder mass later this morning. Discharge planning in progress Justification for Cont. Inpt. At risk for further decompensation if at lower level of care Discharge Planning Patient to return back to residence once psychiatrically stable. Helder Tan MD May 16, 2017 08:32
[2017-05-16] MEDS: TAMSULOSIN HCL 0.4 MG CAP PO SCH (08:38)
[2017-05-16] MEDS: NICOTINE 21 MG/24 HR PATCH T-DERMAL SCH (09:00)
[2017-05-16] MEDS ORDERED: LIDOCAINE 2% JELLY 30 ML TUBE ONE (10:14)
[2017-05-16 10:37] LABS: AUTOMATED NEUTROPHIL # 3.6 TH/MM3 (1.8-7.7); BASOPHIL # 0.1 TH/MM3 (0-0.2); BASOPHIL % 1.2 % (0.0-2.0); EOSINOPHIL # 0.2 TH/MM3 (0-0.4); EOSINOPHIL % 2.6 % (0.0-4.0); HEMATOCRIT 41.9 % (39.0-51.0); HEMO FLAGS DIFF FINAL; LYMPH % 25.1 % (9.0-44.0); LYMPHOCYTE # 1.5 TH/MM3 (1.0-4.8); MEAN CELL VOLUME 97.4 FL (80.0-100.0); MEAN CORPUSCULAR HEMOGLOBIN 33.5 PG (27.0-34.0); MEAN CORPUSCULAR HGB CONC 34.4 % (32.0-36.0); NEUT % 60.1 % (16.0-70.0); PLATELET COUNT 229 TH/MM3 (150-450); RED CELL DISTRIBUTION WIDTH 12.6 % (11.6-17.2)
--- NOTE | 2017-05-16 10:37 | HHI.FPPN ---
Objective Vitals Vital Signs Date Time Temp Pulse Resp B/P (MAP) Pulse Ox O2 Delivery O2 Flow Rate FiO2 05/16/17 05:31 97.8 67 18 113/54 (73) 94 05/15/17 16:10 98.0 61 17 109/68 (82) 96 I/O 05/15/17 05/15/17 05/15/17 05/16/17 05/16/17 05/16/17 07:00 15:00 23:00 07:00 15:00 23:00 Intake Total 240 ml 1560 ml 480 ml Output Total 480 ml 1750 ml 2302 ml Balance -240 ml 1560 ml -1750 ml -1822 ml Intake Oral 240 ml 1560 ml 480 ml Output Urine Total 480 ml 1750 ml 2302 ml # Bowel Movements 1 Objective Remarks GENERAL: SKIN: Warm and dry. HEAD: Atraumatic. Normocephalic. EYES: Pupils equal and round. No scleral icterus. No injection or drainage. ENT: No nasal bleeding or discharge. Mucous membranes pink and moist. NECK: Trachea midline. No JVD. CARDIOVASCULAR: Regular rate and rhythm. RESPIRATORY: No accessory muscle use. Clear to auscultation. Breath sounds equal bilaterally. GASTROINTESTINAL: Abdomen soft, non-tender, nondistended. Hepatic and splenic margins not palpable. SILVA CLEAR MUSCULOSKELETAL: Extremities without clubbing, cyanosis, or edema. No obvious deformities. NEUROLOGICAL: Awake and alert. No obvious cranial nerve deficits. Motor grossly within normal limits. 3 out of 5 muscle strength in the arms and legs. Normal speech. PSYCHIATRIC: Appropriate mood and affect; insight and judgment normal. A/P Assessment and Plan 71-year-old male with a past medical history significant for depression with previous suicide attempt in 2013, panic disorder, severe anxiety, fibromyalgia, agoraphobia and hypothyroidism who was admitted under Leach act to [place] after attempting suicide by overdosing on lorazepam. Patient was transferred to [facility] and has been admitted to the inpatient MedPsych unit. 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 TURBT TODAY Hypothyroidism - Resume patient's home dose of levothyroxine Ongoing tobaccoism - Discussed smoking cessation - Continue nicotine patch DVT prophylaxis - Patient is ambulatory Dominik Barton MD May 16, 2017 10:37
[2017-05-16] MEDS ORDERED: GENTAMICIN/SOD CHL 80 MG/100 ML IV SCH (10:45)
[2017-05-16] MEDS ORDERED: AMPICILLIN 1 GM/NS 100 ML IV SCH ×2 (10:45)
[2017-05-16 10:48] LABS: INTERNATIONAL NORMALIZED RATIO 1.1 RATIO
[2017-05-16 10:56] LABS: POTASSIUM 3.7 MEQ/L (3.5-5.1)
[2017-05-16] MEDS ORDERED: SUGAMMADEX SODIUM 200 MG/2 ML VIAL IV PUSH ONE ×2 (11:25)
--- NOTE | 2017-05-16 11:37 | PD.OP ---
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 Anesthesia: KIMBERLYA Surgeon: Mars Luna Mobile Phone Salesperson(s): None Resident Surgeon: None Operation and Findings: 71 year-old male with findings of a 3 cm bladder tumor as well as a history of urinary retention due to BPH with obstruction. Decision made to bring the patient to the operating room to undergo cystoscopy with transurethral resection of the bladder tumor and possible transurethral incision of the bladder neck. Risk and benefits were discussed preoperatively and he is willing to proceed. The patient was brought to the operating room and identified by myself as Enoc Acosta. He was placed in the dorsal lithotomy position, prepped and draped in usual sterile fashion, received preprocedure antibiotics and general endotracheal tube anesthesia was administered. 24 Bahamian resector sheath was passed into the bladder and the bladder tumor was identified at the dome region on the left lateral side. It was approximately 3 cm in diameter. Using the loop cautery the tumor was resected and then the bed of the tumor was cauterized once the tumor was entirely removed. Good hemostasis was obtained. No other bladder tumors were identified. The patient was noted to have large coapting lobes obstructing his outlet and decision made then to use the hot knife to perform a bladder neck incision. This was done without difficulty and hemostasis was obtained. A 20 Bah[place]ian Eaton catheter was inserted with 10 cc in the balloon. He was awoken extubated and transferred to recovery in stable condition. He tolerated the procedure well void trial be given later this week. Mars Luna DO May 16, 2017 11:37
[2017-05-16] MEDS ORDERED: DO NOT ADM ANY ANTICOAGULANT DRUGS PRN (11:53)
[2017-05-16] MEDS ORDERED: *morphine SULFATE 8 MG/ML PERIprocedure ONLY ONE ×2 (11:59→12:14)
[2017-05-16] MEDS ORDERED: DEXAMETHASONE SOD PHOS 4 MG/ML VIAL IV ONE (12:00)
[2017-05-16] MEDS ORDERED: ePHEDrine/NS 25 MG/5 ML SYR IV ONE (12:00)
[2017-05-16] MEDS ORDERED: MIDAZOLAM HCL 2 MG/2 ML VIAL IV ONE (12:00)
[2017-05-16] MEDS ORDERED: PROPOFOL 200 MG/20 ML AMP IV ONE (12:00)
[2017-05-16] MEDS ORDERED: LIDOCAINE HCL 1% PF 5 ML AMPULE OTHER ONE (12:00)
[2017-05-16] MEDS ORDERED: ROCURONIUM INJ 50 MG/5 ML SYRINGE IV PUSH ONE (12:00)
[2017-05-16] MEDS: BELLADONNA ALKALOIDS/OPIUM 60 MG SUPP RECTAL PRN (12:00)
[2017-05-16] MEDS ORDERED: ONDANSETRON HCL 4 MG/2 ML VIAL IV PUSH ONE (12:00)
[2017-05-16] MEDS ORDERED: *MEPERIDINE 25 MG INJ VIAL PERIprocedural Use ONLY ONE (12:13)
[2017-05-16] MEDS ORDERED: *HYDROmorphone PF 1 MG VIAL PERIprocedural Use ONLY ONE (12:26)
[2017-05-16 16:00] VITALS: BP 107/50; PULSE 75; RESP 16; TEMP 98; O2SAT 96
[2017-05-16] MEDS: VENLAFAXINE HCL 37.5 MG TAB PO SCH (16:00)
[2017-05-16 16:23] VITALS: BP 107/53; PULSE 69; RESP 20; TEMP 97.5; O2SAT 95
[2017-05-16] MEDS: AMPICILLIN 500 MG VIAL IV PUSH SCH ×2 (17:00→22:00)
[2017-05-16] MEDS: GENTAMICIN 80 MG PREMIX 100 ML IV SCH (18:00)
[2017-05-16 18:12] VITALS: BP 93/48; PULSE 63; RESP 16; TEMP 98; O2SAT 97
[2017-05-16 18:42] VITALS: BP 99/50; PULSE 73; RESP 19; O2SAT 96
[2017-05-16] MEDS: traZODone HCL 50 MG TAB PO SCH ×2 (21:00→22:56)
[2017-05-16] MEDS: REMOVE OLD NICOTINE PATCH T-DERMAL SCH (21:00)
[2017-05-16] MEDS: clonazePAM 1 MG TAB PO PRN (22:56)
[2017-05-17] MEDS: GENTAMICIN 80 MG PREMIX 100 ML IV SCH ×2 (02:37→09:26)
[2017-05-17] MEDS ORDERED: SODIUM CHLOR 0.9% 250 ML INJ 250 ML IV ONE (03:45)
[2017-05-17] MEDS ORDERED: SODIUM CHLOR 0.9% 250 ML INJ 250 ML IV SCH (04:00)
[2017-05-17] MEDS: busPIRone HCL 10 MG TAB PO SCH ×3 (05:21→21:02)
[2017-05-17] MEDS: LEVOTHYROXINE SODIUM 75 MCG TAB PO SCH (05:21)
[2017-05-17] MEDS: AMPICILLIN 500 MG VIAL IV PUSH SCH (05:22)
[2017-05-17 06:10] VITALS: BP 94/49; PULSE 52; RESP 18; TEMP 97.7; O2SAT 96
[2017-05-17] MEDS: TAMSULOSIN HCL 0.4 MG CAP PO SCH (09:21)
[2017-05-17] MEDS: NICOTINE 21 MG/24 HR PATCH T-DERMAL SCH (09:22)
--- NOTE | 2017-05-17 11:14 | HHI.PR ---
Subjective Patient symptoms today Pt seen and examined. Some pain over coccyx. Urine clear. Objective Vital Signs Vital Signs Date Time Temp Pulse Resp B/P (MAP) Pulse Ox O2 Delivery O2 Flow Rate FiO2 05/17/17 06:10 97.7 52 18 94/49 (64) 96 05/16/17 20:00 97 Nasal Cannula 2.00 05/16/17 18:42 73 19 99/50 (66) 96 05/16/17 18:12 98.0 63 16 93/48 (63) 97 05/16/17 16:23 97.5 69 20 107/53 (71) 95 05/16/17 16:00 98.0 75 16 107/50 (69) 96 05/16/17 16:00 96 2.00 05/16/17 13:30 98.0 73 17 104/54 (71) 100 Nasal Cannula 2 05/16/17 13:15 69 17 110/54 (72) 97 Nasal Cannula 2 05/16/17 12:45 69 17 126/59 (81) 100 Nasal Cannula 2 05/16/17 12:30 77 15 136/64 (88) 100 Nasal Cannula 2 05/16/17 12:15 73 18 136/64 (88) 100 Nasal Cannula 3 05/16/17 12:00 78 18 133/56 (81) 100 Nasal Cannula 3 05/16/17 11:50 97.8 84 16 130/67 (88) 99 Nasal Cannula 3 Intake & Output 05/17/17 05/17/17 07:00 19:00 Intake Total 720 ml 240 ml Output Total 2000 ml Balance -1280 ml 240 ml Intake Oral 720 ml 240 ml Output Urine Total 2000 ml Result Diagram: 05/16/17 0800 05/16/17 0800 Objective Remarks Abd:soft,nt,nd Eaton: urine clear 05/18 Abd:soft,nt,nd Eaton: urine clear Medications and IVs Current Medications Medications (Trade) Dose Ordered Sig/Mylene Route Start Time Stop Time Status Last Admin (Ativan) 0.5 mg Q12H PRN PO 05/11/17 23:15 05/16/17 06:19 (Ativan Inj) 0.5 mg Q12H PRN IM 05/11/17 23:15 (Tylenol) 650 mg Q4H PRN PO 05/11/17 23:15 05/13/17 22:30 (Milk Of Magnesia Liq) 30 ml DAILY PRN PO 05/11/17 23:15 (Mag-Al Plus Susp Liq) 30 ml Q6H PRN PO 05/11/17 23:15 (Habitrol 21 Mg Patch.24 Hr) 1 patch DAILY T-DERMAL 05/12/17 09:00 05/17/17 09:22 Miscellaneous Information 1 HS T-DERMAL 05/12/17 21:00 05/15/17 21:00 (KlonoPIN) 1 mg Q8H PRN PO 05/12/17 21:45 05/16/17 22:56 (Effexor) 75 mg DAILY@1600 PO 05/13/17 16:00 05/15/17 16:00 (Synthroid) 75 mcg DAILY@0600 PO 05/15/17 06:00 05/17/17 05:21 (Flomax) 0.4 mg DAILY PO 05/14/17 12:00 05/17/17 09:21 (Buspar) 10 mg Q8HR PO 05/14/17 14:00 05/17/17 05:21 (Desyrel) 50 mg HS PO 05/15/17 21:00 05/16/17 22:56 (B & O Supp) 60 mg Q6HR PRN RECTAL 05/16/17 11:45 05/16/17 12:00 Miscellaneous Information ALL NURSING DEPARTME... UNSCH PRN .XX 05/16/17 11:53 05/17/17 11:52 ([place]) 1 applic UNSCH PRN TOPICAL 05/17/17 09:15 Assessment and Plan Assessment and Plan 71 y.o male with findings of bladder tumor on US Plan for cystoscopy; TURBT in AM NPO after MN 05/18 Stable s/p cysto/TURBT/TURBNI OOB/Ambulate Void trial in AM Mars Luna DO May 17, 2017 11:14
--- NOTE | 2017-05-17 11:52 | HHI.FPPN ---
Subjective Remarks CALLED HS W HYPOTENSION ORDERD LABS AND FLUID BOLUS D/W UROLOGIST SILVA CLEAR PT C/O COCCYX PAIN D/W RN Objective Vitals Vital Signs Date Time Temp Pulse Resp B/P (MAP) Pulse Ox O2 Delivery O2 Flow Rate FiO2 05/17/17 09:00 Room Air 05/17/17 06:10 97.7 52 18 94/49 (64) 96 05/16/17 20:00 97 Nasal Cannula 2.00 05/16/17 18:42 73 19 99/50 (66) 96 05/16/17 18:12 98.0 63 16 93/48 (63) 97 05/16/17 16:23 97.5 69 20 107/53 (71) 95 05/16/17 16:00 98.0 75 16 107/50 (69) 96 05/16/17 16:00 96 2.00 05/16/17 13:30 98.0 73 17 104/54 (71) 100 Nasal Cannula 2 05/16/17 13:15 69 17 110/54 (72) 97 Nasal Cannula 2 05/16/17 12:45 69 17 126/59 (81) 100 Nasal Cannula 2 05/16/17 12:30 77 15 136/64 (88) 100 Nasal Cannula 2 05/16/17 12:15 73 18 136/64 (88) 100 Nasal Cannula 3 05/16/17 12:00 78 18 133/56 (81) 100 Nasal Cannula 3 I/O 05/16/17 05/16/17 05/16/17 05/17/17 05/17/17 05/17/17 07:00 15:00 23:00 07:00 15:00 23:00 Intake Total 480 ml 700 ml 240 ml 480 ml 240 ml Output Total 2302 ml 1260 ml 600 ml 1400 ml Balance -1822 ml -560 ml -360 ml -920 ml 240 ml Intake Oral 480 ml 240 ml 480 ml 240 ml IV Total 100 ml Other 600 ml Output Urine Total 2302 ml 1250 ml 600 ml 1400 ml Estimated Blood Loss 10 ml Result Diagram: 05/16/17 0805/16/17 0800 Objective Remarks GENERAL: SKIN: Warm and dry. HEAD: Atraumatic. Normocephalic. EYES: Pupils equal and round. No scleral icterus. No injection or drainage. ENT: No nasal bleeding or discharge. Mucous membranes pink and moist. NECK: Trachea midline. No JVD. CARDIOVASCULAR: Regular rate and rhythm. RESPIRATORY: No accessory muscle use. Clear to auscultation. Breath sounds equal bilaterally. GASTROINTESTINAL: Abdomen soft, non-tender, nondistended. Hepatic and splenic margins not palpable. SILVA CLEAR MUSCULOSKELETAL: Extremities without clubbing, cyanosis, or edema. No obvious deformities. NEUROLOGICAL: Awake and alert. No obvious cranial nerve deficits. Motor grossly within normal limits. 3 out of 5 muscle strength in the arms and legs. Normal speech. PSYCHIATRIC: Appropriate mood and affect; insight and judgment normal. A/P Assessment and Plan 71-year-old male with a past medical history significant for depression with previous suicide attempt in 2013, panic disorder, severe anxiety, fibromyalgia, agoraphobia and hypothyroidism who was admitted under Leach act to [facility] after attempting suicide by overdosing on lorazepam. Patient was transferred to [facility] and has been admitted to the inpatient MedPsych unit. SUICIDAL Major depression with suicide attempt by overdosing on lorazepam Severe anxiety Panic disorder Agoraphobia - Management per psychiatric team Urinary retention Suspected chronic bladder outlet obstruction 1.2 cm mass suspicious for urothelial carcinoma noted on CT the abdomen and pelvis obtained in [facility] - History of tobacco abuse - Continue Silva catheter for now - Resume home Flomax 0.4 mg daily - Consult urology. S/P TURBT AND TUBNI. DC SILVA PER UROLOGIST. VOID TRIAL THEN BACK TO PSYCHIATRY LIKELY. HYPOTENSION, CHRONIC: IVF BOLUSED. STAT LABS. Hypothyroidism - Resume patient's home dose of levothyroxine Ongoing tobaccoism - Discussed smoking cessation - Continue nicotine patch DVT prophylaxis - Patient is ambulatory Dominik Barton MD May 17, 2017 11:52
[2017-05-17 12:27] LABS: AUTOMATED NEUTROPHIL # 9.6 TH/MM3 (1.8-7.7); BASOPHIL # 0.1 TH/MM3 (0-0.2); BASOPHIL % 0.6 % (0.0-2.0); EOSINOPHIL # 0.1 TH/MM3 (0-0.4); EOSINOPHIL % 0.9 % (0.0-4.0); HEMATOCRIT 38.2 % (39.0-51.0); HEMO FLAGS DIFF FINAL; LYMPH % 14.1 % (9.0-44.0); LYMPHOCYTE # 1.8 TH/MM3 (1.0-4.8); MEAN CELL VOLUME 98.7 FL (80.0-100.0); MEAN CORPUSCULAR HEMOGLOBIN 33.3 PG (27.0-34.0); MEAN CORPUSCULAR HGB CONC 33.7 % (32.0-36.0); MONO % 9.7 % (0.0-8.0); NEUT % 74.7 % (16.0-70.0); PLATELET COUNT 189 TH/MM3 (150-450); RED BLOOD COUNT 3.87 MIL/MM3 (4.50-5.90); RED CELL DISTRIBUTION WIDTH 12.8 % (11.6-17.2); WHITE BLOOD COUNT 12.8 TH/MM3 (4.0-11.0)
[2017-05-17 12:48] LABS: BICARBONATE 28.2 MEQ/L (21.0-32.0)
[2017-05-17] MEDS: PADIMATE (CHAPSTICK) 4.5 GM TUBE TOPICAL PRN ×2 (13:45→21:02)
--- NOTE | 2017-05-17 15:29 | HHI.PYPN ---
Subjective Chief Complaint: recent suicide attempt via overdose Remarks Patient seen for follow-up, chart review. Patient found sitting in hospital bed , cooperative. Patient states that he slept well yesterday and was surprised that he was calmer that he had expected going up to the time of the surgery. He mentions that he continues to feel anxious about the biopsy results. He stated that he has always felt hopeless throughout his life but recently has been having "sense of hope". He reports that he occasionally feels down at times but feels that his mood is improving. Patient reports still having fleeting suicidal ideations but a less intense and less frequent. Review of Systems Except as stated in HPI: all other systems reviewed are Neg Mental Status Examination Appearance: Appropriate Consciousness: Alert Orientation: Person, Place, Date/Time Motor Activity: Normal gait Speech: Unremarkable Language: Adequate Fund of Knowledge: Adequate Attention and Concentration: Adequate Memory: Unremarkable (except for events after overdose) Mood: Appropriate Affect: Sad (less so today), Anxious Thought Process & Associations: Intact, Linear Thought Content: Appropriate Hallucination Type: None Delusion Type: None Suicidal Ideation: Yes (denies today) Suicidal Plan: No Suicidal Intention: No Homicidal Ideation: No Homicidal Plan: No Homicidal Intention: No Insight: Fair Judgment: Poor Results Labs Labs reviewed. Test 05/17/17 12:04 White Blood Count 12.8 TH/MM3 Red Blood Count 3.87 MIL/MM3 Hemoglobin 12.9 GM/DL Hematocrit 38.2 % Mean Corpuscular Volume 98.7 FL Mean Corpuscular Hemoglobin 33.3 PG Mean Corpuscular Hemoglobin Concent 33.7 % Red Cell Distribution Width 12.8 % Platelet Count 189 TH/MM3 Mean Platelet Volume 8.0 FL Neutrophils (%) (Auto) 74.7 % Lymphocytes (%) (Auto) 14.1 % Monocytes (%) (Auto) 9.7 % Eosinophils (%) (Auto) 0.9 % Basophils (%) (Auto) 0.6 % Neutrophils # (Auto) 9.6 TH/MM3 Lymphocytes # (Auto) 1.8 TH/MM3 Monocytes # (Auto) 1.2 TH/MM3 Eosinophils # (Auto) 0.1 TH/MM3 Basophils # (Auto) 0.1 TH/MM3 CBC Comment DIFF FINAL Differential Comment Blood Urea Nitrogen 16 MG/DL Creatinine 0.94 MG/DL Random Glucose 76 MG/DL Calcium Level 8.6 MG/DL Sodium Level 137 MEQ/L Potassium Level 4.0 MEQ/L Chloride Level 104 MEQ/L Carbon Dioxide Level 28.2 MEQ/L Anion Gap 5 MEQ/L Estimat Glomerular Filtration Rate 79 ML/MIN Vitals/IOs Vital Signs Date Time Temp Pulse Resp B/P (MAP) Pulse Ox O2 Delivery O2 Flow Rate FiO2 05/17/17 09:00 Room Air 05/17/17 06:10 97.7 52 18 94/49 (64) 96 05/16/17 20:00 2.00 Intake and Output 05/17/17 05/17/17 05/18/17 08:00 16:00 00:00 Intake Total 480 ml 960 ml Output Total 1400 ml 1000 ml Balance -920 ml -40 ml Assessment & Plan Problem List: (1) Severe episode of recurrent major depressive disorder, without psychotic features ICD Codes: F33.2 - Major depressive disorder, recurrent severe without psychotic features Assessment & Plan Patient recovering well from recent excision of bladder mass. Patient reports feeling anxious due to pending biopsy result. Patient reports that his mood is improving feeling less depressed and having less intense and less frequent suicidal ideations. Continue current treatment for now. Discharge planning in progress Justification for Cont. Inpt. At risk for further decompensation if at lower level of care Discharge Planning Patient to return to residence once psychiatric stable. Helder Tan MD May 17, 2017 15:29
[2017-05-17] MEDS: VENLAFAXINE HCL 37.5 MG TAB PO SCH (17:11)
[2017-05-17 17:48] VITALS: BP 102/50; PULSE 70; RESP 18; TEMP 98.8; O2SAT 96
[2017-05-17] MEDS: clonazePAM 1 MG TAB PO PRN (17:50)
[2017-05-17] MEDS: REMOVE OLD NICOTINE PATCH T-DERMAL SCH (21:00)
[2017-05-17] MEDS: traZODone HCL 50 MG TAB PO SCH (21:02)
[2017-05-17] MEDS: BELLADONNA ALKALOIDS/OPIUM 60 MG SUPP RECTAL PRN (21:16)
[2017-05-17] MEDS: ACETAMINOPHEN/HYDROcodone 325 MG/5 MG TAB PO PRN (23:26)
[2017-05-18 04:56] VITALS: BP 102/53; PULSE 60; RESP 16; TEMP 98.6; O2SAT 95
[2017-05-18] MEDS: busPIRone HCL 10 MG TAB PO SCH ×3 (05:13→21:07)
[2017-05-18] MEDS: ACETAMINOPHEN/HYDROcodone 325 MG/5 MG TAB PO PRN ×2 (05:13→11:02)
[2017-05-18] MEDS: LEVOTHYROXINE SODIUM 75 MCG TAB PO SCH (05:14)
[2017-05-18] MEDS: TAMSULOSIN HCL 0.4 MG CAP PO SCH (09:30)
[2017-05-18] MEDS: NICOTINE 21 MG/24 HR PATCH T-DERMAL SCH (09:30)
[2017-05-18] MEDS: clonazePAM 1 MG TAB PO PRN ×2 (09:35→16:47)
--- NOTE | 2017-05-18 10:51 | HHI.PR ---
Subjective Patient symptoms today Pt seen and examined. Eaton out and voiding. Path reviewed: Low Grade TCC/non- invasive Objective Vital Signs Vital Signs Date Time Temp Pulse Resp B/P (MAP) Pulse Ox O2 Delivery O2 Flow Rate FiO2 05/18/17 04:56 98.6 60 16 102/53 (69) 95 05/17/17 17:48 98.8 70 18 102/50 (67) 96 Intake & Output 05/18/17 05/18/17 07:00 19:00 Intake Total 1200 ml Output Total 3300 ml Balance -2100 ml Intake Oral 1200 ml Output Urine Total 3300 ml Result Diagram: 05/17/17 1204 05/17/17 1204 Objective Remarks Abd:soft,nt,nd Eaton: urine clear 05/17 Abd:soft,nt,nd Eaton: urine clear 05/18 Abd:soft,nt,nd Voiding Medications and IVs Current Medications Medications (Trade) Dose Ordered Sig/Mylene Route Start Time Stop Time Status Last Admin (Ativan) 0.5 mg Q12H PRN PO 05/11/17 23:15 05/16/17 06:19 (Ativan Inj) 0.5 mg Q12H PRN IM 05/11/17 23:15 (Tylenol) 650 mg Q4H PRN PO 05/11/17 23:15 05/13/17 22:30 (Milk Of Magnesia Liq) 30 ml DAILY PRN PO 05/11/17 23:15 (Mag-Al Plus Susp Liq) 30 ml Q6H PRN PO 05/11/17 23:15 (Habitrol 21 Mg Patch.24 Hr) 1 patch DAILY T-DERMAL 05/12/17 09:00 05/18/17 09:30 Miscellaneous Information 1 HS T-DERMAL 05/12/17 21:00 05/17/17 21:00 (KlonoPIN) 1 mg Q8H PRN PO 05/12/17 21:45 05/18/17 09:35 (Effexor) 75 mg DAILY@1600 PO 05/13/17 16:00 05/17/17 17:11 (Synthroid) 75 mcg DAILY@0600 PO 05/15/17 06:00 05/18/17 05:14 (Flomax) 0.4 mg DAILY PO 05/14/17 12:00 05/18/17 09:30 (Buspar) 10 mg Q8HR PO 05/14/17 14:00 05/18/17 05:13 (Desyrel) 50 mg HS PO 05/15/17 21:00 05/17/17 21:02 (B & O Supp) 60 mg Q6HR PRN RECTAL 05/16/17 11:45 05/17/17 21:16 (Chapstick) 1 applic UNSCH PRN TOPICAL 05/17/17 09:15 05/17/17 21:02 ([place] 5-325 Mg) 1 tab Q4H PRN PO 05/17/17 23:30 05/18/17 05:13 Assessment and Plan Assessment and Plan 71 y.o male with findings of bladder tumor on US Plan for cystoscopy; TURBT in AM NPO after MN 05/18 Stable s/p cysto/TURBT/TURBNI OOB/Ambulate Void trial in AM 05/18 Stable s/p cysto./TURBN/TURBNI Voiding Bladder scan to check PVR Will need f/u in 3 months for cysto in office Mars Luna DO May 18, 2017 10:51
[2017-05-18] MEDS: BELLADONNA ALKALOIDS/OPIUM 60 MG SUPP RECTAL PRN (14:11)
[2017-05-18 14:24] VITALS: BP 97/45; PULSE 70; RESP 20; TEMP 99.6; O2SAT 96
[2017-05-18] MEDS: VENLAFAXINE HCL 37.5 MG TAB PO SCH (15:21)
--- NOTE | 2017-05-18 16:23 | HHI.FPPN ---
Subjective Remarks SEVERE ABDOM PAIN. PT C/O URINARY OBSTRUCTION D/W RN Objective Vitals Vital Signs Date Time Temp Pulse Resp B/P (MAP) Pulse Ox O2 Delivery O2 Flow Rate FiO2 05/18/17 14:24 99.6 70 20 97/45 (62) 96 05/18/17 04:56 98.6 60 16 102/53 (69) 95 05/17/17 17:48 98.8 70 18 102/50 (67) 96 I/O 05/17/17 05/17/17 05/17/17 05/18/17 05/18/17 05/18/17 07:00 15:00 23:00 07:00 15:00 23:00 Intake Total 480 ml 960 ml 1200 ml 0 ml 480 ml Output Total 1400 ml 1000 ml 1000 ml 2300 ml Balance -920 ml -40 ml 200 ml -2300 ml 480 ml Intake Oral 480 ml 960 ml 1200 ml 0 ml 480 ml Output Urine Total 1400 ml 1000 ml 1000 ml 2300 ml Result Diagram: 05/17/17 1204 05/17/17 1204 Objective Remarks GENERAL: SKIN: Warm and dry. HEAD: Atraumatic. Normocephalic. EYES: Pupils equal and round. No scleral icterus. No injection or drainage. ENT: No nasal bleeding or discharge. Mucous membranes pink and moist. NECK: Trachea midline. No JVD. CARDIOVASCULAR: Regular rate and rhythm. RESPIRATORY: No accessory muscle use. Clear to auscultation. Breath sounds equal bilaterally. GASTROINTESTINAL: Abdomen soft, non-tender, nondistended. Hepatic and splenic margins not palpable. SILVA CLEAR MUSCULOSKELETAL: Extremities without clubbing, cyanosis, or edema. No obvious deformities. NEUROLOGICAL: Awake and alert. No obvious cranial nerve deficits. Motor grossly within normal limits. 3 out of 5 muscle strength in the arms and legs. Normal speech. PSYCHIATRIC: Appropriate mood and affect; insight and judgment normal. Medications and IVs Current Medications Medications (Trade) Dose Ordered Sig/Mylene Route Start Time Stop Time Status Last Admin (Ativan) 0.5 mg Q12H PRN PO 05/11/17 23:15 05/16/17 06:19 (Ativan Inj) 0.5 mg Q12H PRN IM 05/11/17 23:15 (Tylenol) 650 mg Q4H PRN PO 05/11/17 23:15 05/13/17 22:30 (Milk Of Magnesia Liq) 30 ml DAILY PRN PO 05/11/17 23:15 (Mag-Al Plus Susp Liq) 30 ml Q6H PRN PO 05/11/17 23:15 (Habitrol 21 Mg Patch.24 Hr) 1 patch DAILY T-DERMAL 05/12/17 09:00 05/18/17 09:30 Miscellaneous Information 1 HS T-DERMAL 05/12/17 21:00 05/17/17 21:00 (KlonoPIN) 1 mg Q8H PRN PO 05/12/17 21:45 05/18/17 09:35 (Effexor) 75 mg DAILY@1600 PO 05/13/17 16:00 05/18/17 15:21 (Synthroid) 75 mcg DAILY@0600 PO 05/15/17 06:00 05/18/17 05:14 (Flomax) 0.4 mg DAILY PO 05/14/17 12:00 05/18/17 09:30 (Buspar) 10 mg Q8HR PO 05/14/17 14:00 05/18/17 14:11 (Desyrel) 50 mg HS PO 05/15/17 21:00 05/17/17 21:02 (B & O Supp) 60 mg Q6HR PRN RECTAL 05/16/17 11:45 05/18/17 14:11 (Chapstick) 1 applic UNSCH PRN TOPICAL 05/17/17 09:15 05/17/17 21:02 ([place] 5-325 Mg) 1 tab Q4H PRN PO 05/17/17 23:30 05/18/17 11:02 A/P Assessment and Plan 71-year-old male with a past medical history significant for depression with previous suicide attempt in 2013, panic disorder, severe anxiety, fibromyalgia, agoraphobia and hypothyroidism who was admitted under Leach act to [facility] after attempting suicide by overdosing on lorazepam. Patient was transferred to [facility] and has been admitted to the inpatient MedPsych unit. SUICIDAL Major depression with suicide attempt by overdosing on lorazepam Severe anxiety Panic disorder Agoraphobia - Management per psychiatric team ABDOMINAL PAIN: INCREASE PAIN MEDS. ADD MOTRIN AND INCREASE NORCO TO TEN MG. Urinary retention- Voiding. Bladder scan to check PVR. Will need f/u in 3 months for cysto in office Suspected chronic bladder outlet obstruction 1.2 cm mass suspicious for urothelial carcinoma noted on CT the abdomen and pelvis obtained in [facility] - History of tobacco abuse - Continue Silva catheter for now - Resume home Flomax 0.4 mg daily - Consult urology. S/P TURBT AND TUBNI. DC SILVA PER UROLOGIST. VOID TRIAL THEN BACK TO PSYCHIATRY LIKELY. HYPOTENSION, CHRONIC: IVF BOLUSED. STAT LABS. Hypothyroidism - Resume patient's home dose of levothyroxine Ongoing tobaccoism - Discussed smoking cessation - Continue nicotine patch DVT prophylaxis - Patient is ambulatory Dominik Barton MD May 18, 2017 16:23
[2017-05-18] MEDS: ACETAMINOPHEN/HYDROcodone 325 MG/10 MG TAB PO PRN ×2 (16:48→21:07)
[2017-05-18 18:00] VITALS: BP 107/53; PULSE 70; RESP 16; TEMP 100.5; O2SAT 96
[2017-05-18] MEDS: REMOVE OLD NICOTINE PATCH T-DERMAL SCH (21:00)
[2017-05-18] MEDS: traZODone HCL 50 MG TAB PO SCH (21:07)
[2017-05-19] MEDS: busPIRone HCL 10 MG TAB PO SCH ×2 (05:07→14:00)
[2017-05-19] MEDS: IBUPROFEN 800 MG TAB PO PRN ×2 (05:07→12:11)
[2017-05-19] MEDS: LEVOTHYROXINE SODIUM 75 MCG TAB PO SCH (05:07)
[2017-05-19 05:18] VITALS: BP 91/49; PULSE 65; RESP 16; TEMP 96.8; O2SAT 96
[2017-05-19] MEDS: ACETAMINOPHEN/HYDROcodone 325 MG/10 MG TAB PO PRN (06:20)
--- NOTE | 2017-05-19 08:36 | HHI.PR ---
Subjective Patient symptoms today Pt seen and examined. Feeling better by report. Objective Vital Signs Vital Signs Date Time Temp Pulse Resp B/P (MAP) Pulse Ox O2 Delivery O2 Flow Rate FiO2 05/19/17 05:18 96.8 65 16 91/49 (63) 96 05/18/17 18:00 100.5 70 16 107/53 (71) 96 05/18/17 14:24 99.6 70 20 97/45 (62) 96 Intake & Output 05/19/17 05/19/17 07:00 19:00 Intake Total 480 ml Balance 480 ml Intake Oral 480 ml # Voids 3 Result Diagram: 05/17/17 1204 05/17/17 1204 Objective Remarks Abd:soft,nt,nd Eaton: urine clear 05/17 Abd:soft,nt,nd Eaton: urine clear 05/18 Abd:soft,nt,nd Voiding 05/19 Abd:soft,nt,nd Voiding Medications and IVs Current Medications Medications (Trade) Dose Ordered Sig/Mylene Route Start Time Stop Time Status Last Admin (Ativan) 0.5 mg Q12H PRN PO 05/11/17 23:15 05/16/17 06:19 (Ativan Inj) 0.5 mg Q12H PRN IM 05/11/17 23:15 (Tylenol) 650 mg Q4H PRN PO 05/11/17 23:15 05/13/17 22:30 (Milk Of Magnesia Liq) 30 ml DAILY PRN PO 05/11/17 23:15 (Mag-Al Plus Susp Liq) 30 ml Q6H PRN PO 05/11/17 23:15 (Habitrol 21 Mg Patch.24 Hr) 1 patch DAILY T-DERMAL 05/12/17 09:00 05/18/17 09:30 Miscellaneous Information 1 HS T-DERMAL 05/12/17 21:00 05/18/17 21:00 (KlonoPIN) 1 mg Q8H PRN PO 05/12/17 21:45 05/18/17 16:47 (Effexor) 75 mg DAILY@1600 PO 05/13/17 16:00 05/18/17 15:21 (Synthroid) 75 mcg DAILY@0600 PO 05/15/17 06:00 05/19/17 05:07 (Flomax) 0.4 mg DAILY PO 05/14/17 12:00 05/18/17 09:30 (Buspar) 10 mg Q8HR PO 05/14/17 14:00 05/19/17 05:07 (Desyrel) 50 mg HS PO 05/15/17 21:00 05/18/17 21:07 (B & O Supp) 60 mg Q6HR PRN RECTAL 05/16/17 11:45 05/18/17 14:11 (Chapstick) 1 applic UNSCH PRN TOPICAL 05/17/17 09:15 05/17/17 21:02 (Motrin) 800 mg Q8H PRN PO 05/18/17 16:30 05/19/17 05:07 ([place] 10-325 Mg) 1 tab Q4H PRN PO 05/18/17 16:30 05/19/17 06:20 Assessment and Plan Assessment and Plan 71 y.o male with findings of bladder tumor on US Plan for cystoscopy; TURBT in AM NPO after MN 05/18 Stable s/p cysto/TURBT/TURBNI OOB/Ambulate Void trial in AM 05/18 Stable s/p cysto./TURBN/TURBNI Voiding Bladder scan to check PVR Will need f/u in 3 months for cysto in office 05/19 Stable s/p cysto./TURBN/TURBNI Voiding better Will need f/u in 3 months for cysto in office Mars Luna DO May 19, 2017 08:36
--- NOTE | 2017-05-19 08:57 | HHI.PYPN ---
Subjective Chief Complaint: recent suicide attempt via overdose Remarks LATE ENTRY: 05/18/17 Patient seen for follow up, chart reviewed. Patient found lying in hospital bed , cooperative interview. Patient states that his catheter was removed and his pain is been a little better. Patient states that his mood has been anxious about being able to urinate states that his depression is "not as bad". Patient states that he feels hopeful, denies any suicidal ideations and states that he would never "do that to myself or to her brothers again" referring to his recent suicide attempt. Patient states that he looks forward to recovering well and was a bit anxious about the results of the pathology report of the mass. Review of Systems Except as stated in HPI: all other systems reviewed are Neg Mental Status Examination Appearance: Appropriate Consciousness: Alert Orientation: Person, Place, Date/Time Motor Activity: Normal gait Speech: Unremarkable Language: Adequate Fund of Knowledge: Adequate Attention and Concentration: Adequate Memory: Unremarkable (except for events after overdose) Mood: Appropriate Affect: Anxious, Other ("better") Thought Process & Associations: Intact, Linear Thought Content: Appropriate Hallucination Type: None Delusion Type: None Suicidal Ideation: No Suicidal Plan: No Suicidal Intention: No Homicidal Ideation: No Homicidal Plan: No Homicidal Intention: No Insight: Fair Judgment: Impulsive (Fair) Results Vitals/IOs Vital Signs Date Time Temp Pulse Resp B/P (MAP) Pulse Ox O2 Delivery O2 Flow Rate FiO2 05/19/17 05:18 96.8 65 16 91/49 (63) 96 05/17/17 09:00 Room Air 05/16/17 20:00 2.00 Intake and Output 05/19/17 05/19/17 05/20/17 08:00 16:00 00:00 Intake Total 0 ml Balance 0 ml Assessment & Plan Problem List: (1) Severe episode of recurrent major depressive disorder, without psychotic features ICD Codes: F33.2 - Major depressive disorder, recurrent severe without psychotic features Assessment & Plan Patient at this time appears to having improvement of depressed mood, continues to deny suicidal ideations. Patient noted to be somewhat anxious due to pending pathology report. Continue current treatment, discharge planning in progress Justification for Cont. Inpt. At risk for further decompensation if at lower level of care Discharge Planning Will be discharged back to his residence upon discharge Helder Tan MD May 19, 2017 08:57
--- NOTE | 2017-05-19 09:44 | HHI.DS ---
Psychiatry Discharge Summary Inpatient Psychiatric care?: Yes Advance Directive: No Reason Not Provided: does not want Mental Health AdvanceDirective: No Health Care Proxy: No Admission Admission Date May 11, 2017 at 22:30 Admission Diagnosis: (1) Severe episode of recurrent major depressive disorder, without psychotic features ICD Code: F33.2 - Major depressive disorder, recurrent severe without psychotic features Brief History Patient is a 71-year-old man, single, no children, retired on Social Security income, living with brother, past psychiatric history of depression, anxiety disorder, panic disorder, 1 previous psychiatric hospitalization (to 713 ), one previous suicide attempt via overdose (2013), no previous history of self -interest behavior, was transferred from [facility] after recent suicide attempt via overdose with lorazepam and under Leach act for the same. Patient was transferred to the inpatient medical/psychiatry unit for further evaluation and management. Patient was seen with nurse today lying in hospital bed, cooperative interview, noted to be tearful at times. Patient states that he had a recent suicide attempt via overdose with lorazepam in his home stating "something told me I can't take this anymore" and refers to his recent suicide attempt as an act of desperation. Patient reports that for the past year he had been feeling sad and depressed but worsening over the past 1-2 months, with decreased sleep, appetite, energy, concentration, pleasure in hobbies, as well as feeling hopeless and helpless, with decreased maintenance of hygiene, and having suicidal ideations for the 1-1/2 months: No method or plan. Patient states that he had been feeling more more overwhelmed due to news of many family members becoming sick due to medical issues. He also states that he lives with his older brother whom has diagnoses of multiple cancers which is primary general agent for the past 8-10 years. Patient recalls that he has the overdose of having taken the bottle of Ativan and had taken all of the pills and writing a suicide note which he left next to his bed which upon his brother walked into the room and found him lying on the bed and had noticed a note which he then called 911. Patient states that he will woken up in the hospital and feels tremendous amount of guilt due to this recent event. She currently reports feeling "better" but continues to feel sad and depressed along with suicide ideations, but denies any HI, AVH or delusions. Past psychiatric history: Previous psychiatric diagnoses of anxiety, depression , panic disorder, previous psychiatric authorization in 2013 for depression, previous suicide attempts but this is a 15 via overdose, no history of self- injurious behavior. Previous medication trials include Lexapro, Haldol, Ativan. Family psychiatric history: Aunt with depression, alcohol with Parkinson's disease, denies any suicides in the family. Substance use disorder: Tobacco (+), alcohol use "sell them", last time being 10 years ago. Patient denies any use of illicit drug use. Past medical history, hypothyroidism, fibromyalgia, benign prostatic hyperplasia Allergies, NKDA Social history: Single, no children, originally from [place], living in [place] since 1980, retired on Social Security income, no background, no legal history, no firearms in the home. Patient lives with his older brother Pacheco Anderson does not want him involved in his care at this time but agrees to have his other brother Terry solis to be the traffic personnel supervisor. Denominational: Mandaeism Tobacco Use In Past 30 Days: No Tobacco Past 30 Days Alcohol Use: Never Hospital Course Patient is a 71-year-old man, single, no children, retired on Social Security income, living with brother, past psychiatric history of depression, anxiety disorder, panic disorder, 1 previous psychiatric hospitalization (to 3 ), one previous suicide attempt via overdose (2013), no previous history of self -interest behavior, was transferred from [facility] after recent suicide attempt via overdose with lorazepam and under Leach act for the same. Patient was admitted to the inpatient psychiatry unit where he was started on sertraline 50 mg by mouth daily for depression but switched to venlafaxine 37.5 mg at titration up to 75 mg by mouth daily, buspirone 5 mg and titrated up to 10 mg by mouth 3 times a day, trazodone 50 mg at bedtime. Patient continued to have improvement of mood, denied any suicidal ideation and began to be becoming more hopeful. Patient was also seen by urology consult which patient was managed for bladder mass, status post cystoscopy (TURBN/TURBNI) which patient will follow up in 3 months with urology. Upon discharge patient was future oriented, continued to have baseline anxiety but was managing much better, states that his reduced live or for his family and for himself and wanted to continue living his life well. Stated feeling motivated to continue onto treatment and attend outpatient follow up appointments for continuity of care. Patient denies SI, HI, AVH or delusions. Supportive psychotherapy provided. Patient advised to return to ED or call 911 in case of emergency. Patient agrees with plan. Results Blood Pressure 91 / 49 Vital Signs Date Time Temp Pulse Resp B/P (MAP) Pulse Ox O2 Delivery O2 Flow Rate FiO2 05/19/17 05:18 96.8 65 16 91/49 (63) 96 05/17/17 09:00 Room Air 05/16/17 20:00 2.00 Laboratory Tests Test 05/16/17 10:21 05/17/17 12:04 Prothrombin Time 12.0 SEC (9.8-11.6) White Blood Count 12.8 TH/MM3 (4.0-11.0) Red Blood Count 3.87 MIL/MM3 (4.50-5.90) Hemoglobin 12.9 GM/DL (13.0-17.0) Hematocrit 38.2 % (39.0-51.0) Neutrophils (%) (Auto) 74.7 % (16.0-70.0) Monocytes (%) (Auto) 9.7 % (0.0-8.0) Neutrophils # (Auto) 9.6 TH/MM3 (1.8-7.7) Monocytes # (Auto) 1.2 TH/MM3 (0-0.9) Estimat Glomerular Filtration Rate 79 ML/MIN (>89) Laboratory Results Test 05/12/17 08:15 Cholesterol Level 159 MG/DL (120-200) HDL Cholesterol 54.0 MG/DL (40.0-60.0) LDL Cholesterol 94 MG/DL (0-99) Triglycerides Level 54 MG/DL (42-150) Summary of Procedures cystoscopy (TURBN/TURBNI) Imaging Last Impressions Renal Ultrasound 05/14/17 0000 Signed Impressions: Service Date/Time: Sunday, May 14, 2017 13:31 - CONCLUSION: 1. Unremarkable ultrasound examination of the kidneys. 2. 1 cm mass within the bladder. Cystoscopy is recommended for further evaluation if clinically indicated.8 Andres Gee MD Pending results at discharge: No Medications # of Antipsychotic meds at D/C: 0 Approp Antipsych med options 1 - Minimum of three failed multiple trials of monotherapy. 2 - Documented plan to taper to monotherapy due to previous use of multiple meds OR cross-taper in progress at D/C. 3 - Documentation of augmentation of Clozapine. 4 - Justification other than those listed in allowable values 1-3, document here : Discharge Discharge Date: May 19, 2017 Discharge Diagnosis: (1) Severe episode of recurrent major depressive disorder, without psychotic features Diagnosis: Principal ICD Code: F33.2 - Major depressive disorder, recurrent severe without psychotic features Pt Condition on Discharge: Stable Discharge Disposition: Discharge Home Discharge Instructions Diet Instructions: Heart Healthy Diet Discharge Time > 30 minutes Mental Status Examination Appearance: Appropriate Consciousness: Alert Orientation: Person, Place, Date/Time Motor Activity: Normal gait Speech: Unremarkable Language: Adequate Fund of Knowledge: Adequate Attention and Concentration: Adequate Memory: Unremarkable (except for events after overdose) Mood: Appropriate Affect: Anxious Thought Process & Associations: Intact, Linear Thought Content: Appropriate, Other (future oriented) Hallucination Type: None Delusion Type: None Suicidal Ideation: No Suicidal Plan: No Suicidal Intention: No Homicidal Ideation: No Homicidal Plan: No Homicidal Intention: No Insight: Fair Judgment: Impulsive (Fair) Discharge/Advance Care Plan Health Problems: (1) Severe episode of recurrent major depressive disorder, without psychotic features Goals to promote your health * To prevent worsening of your condition and complications * To maintain your health at the optimal level Directions to meet your goals Take your medications as prescribed Follow your dietary instruction Follow activity as directed Keep your appointments as scheduled Take your immunizations and boosters as scheduled If your symptoms worsen call your PCP, if no PCP go to Urgent Care Center or Emergency Room For 24/ questions related to your inpatient stay or results of tests pending at discharge, please contact Dr. Helder Tan at Smoking is Dangerous to Your Health. Avoid second hand smoking Helder Tan MD May 19, 2017 09:44
[2017-05-19] MEDS ORDERED: BUSP10TA PO (10:09)
--- NOTE | 2017-05-19 10:11 | HHI.DCPOC ---
Discharge Care Plan Diagnosis: (1) Severe episode of recurrent major depressive disorder, without psychotic features Goals to Promote Your Health * To prevent worsening of your condition and complications * To maintain your health at the optimal level Directions to Meet Your Goals Take your medications as prescribed Follow your dietary instruction Follow activity as directed Keep your appointments as scheduled Take your immunizations and boosters as scheduled If your symptoms worsen call your PCP, if no PCP go to Urgent Care Center or Emergency Room Smoking is Dangerous to Your Health. Avoid second hand smoke Call the 24-hour hour crisis hotline for domestic abuse at Dominik Barton MD May 19, 2017 10:11
--- NOTE | 2017-05-19 10:12 | HHI.FF ---
Face to Face Verification Diagnosis: (1) Severe episode of recurrent major depressive disorder, without psychotic features Physical Therapy Order: Evaluate and Treat, Improve ambulation, Strength and gait training Occupational Therapy Order: Evaluate and Treat, Improve ADL, Gross motor coordination Speech Therapy Order: To Improve: Speech and communication skills, Cognitive skills Home Health Nursing Order: Medical education Signs/symptoms of disease process Medication education-adverse effect Nursing assessment with vital signs Telehealth Home Health Aide Order: To Assist In: Bathing and personal care, soaking pit operator and meal prep Building Appraiser Order: To Evaluate: Living conditions/environment, Support services Order: To Provide: Long range planning, Community services I have seen patient Enoc Acosta on 05/19/17. My clinical findings support the need for the requested home health care services because: Patient has SOB Deconditioned w/ increased weakness Med compliance is questionable Limited ability to care for self Need for psychosocial assistance Impaired cognition/judgement High risk of falls I certify that my clinical findings support that this patient is homebound because: Impaired cognitive ability/safety Unsteady gait/balance Unsafe to leave home unassisted Need for psychosocial assistance Ibt-[id number] bed/chair Unable to use public transportation Domiink Barton MD May 19, 2017 10:12
--- NOTE | 2017-05-19 10:14 | HHI.FPPN ---
Subjective Remarks NO SI, HI. C/O MOD ANXIETY AND SLIGHT ABDOMINAL AND BACK PAIN. Objective Vitals Vital Signs Date Time Temp Pulse Resp B/P (MAP) Pulse Ox O2 Delivery O2 Flow Rate FiO2 05/19/17 05:18 96.8 65 16 91/49 (63) 96 05/18/17 18:00 100.5 70 16 107/53 (71) 96 05/18/17 14:24 99.6 70 20 97/45 (62) 96 I/O 05/18/17 05/18/17 05/18/17 05/19/17 05/19/17 05/19/17 07:00 15:00 23:00 07:00 15:00 23:00 Intake Total 0 ml 480 ml 480 ml 480 ml 360 ml Output Total 2300 ml Balance -2300 ml 480 ml 480 ml 480 ml 360 ml Intake Oral 0 ml 480 ml 480 ml 480 ml 360 ml Output Urine Total 2300 ml # Voids 3 Result Diagram: 05/17/17 1204 05/17/17 1204 Objective Remarks GENERAL: SKIN: Warm and dry. HEAD: Atraumatic. Normocephalic. EYES: Pupils equal and round. No scleral icterus. No injection or drainage. ENT: No nasal bleeding or discharge. Mucous membranes pink and moist. NECK: Trachea midline. No JVD. CARDIOVASCULAR: Regular rate and rhythm. RESPIRATORY: No accessory muscle use. Clear to auscultation. Breath sounds equal bilaterally. GASTROINTESTINAL: Abdomen soft, non-tender, nondistended. Hepatic and splenic margins not palpable. SILVA CLEAR MUSCULOSKELETAL: Extremities without clubbing, cyanosis, or edema. No obvious deformities. NEUROLOGICAL: Awake and alert. No obvious cranial nerve deficits. Motor grossly within normal limits. 3 out of 5 muscle strength in the arms and legs. Normal speech. PSYCHIATRIC: Appropriate mood and affect; insight and judgment normal. A/P Assessment and Plan 71-year-old male with a past medical history significant for depression with previous suicide attempt in 2013, panic disorder, severe anxiety, fibromyalgia, agoraphobia and hypothyroidism who was admitted under Leach act to [facility] after attempting suicide by overdosing on lorazepam. Patient was transferred to [facility] and has been admitted to the inpatient MedPsych unit. SUICIDAL Major depression with suicide attempt by overdosing on lorazepam Severe anxiety Panic disorder Agoraphobia - Management per psychiatric team ABDOMINAL PAIN: INCREASE PAIN MEDS. ADD MOTRIN AND INCREASE NORCO TO TEN MG. Urinary retention- Voiding. Bladder scan to check PVR. Will need f/u in 3 months for cysto in office Suspected chronic bladder outlet obstruction 1.2 cm mass suspicious for urothelial carcinoma noted on CT the abdomen and pelvis obtained in [facility] - History of tobacco abuse - Continue Silva catheter for now - Resume home Flomax 0.4 mg daily - Consult urology. S/P TURBT AND TUBNI. DC SILVA PER UROLOGIST. VOID TRIAL THEN BACK TO PSYCHIATRY LIKELY. HYPOTENSION, CHRONIC: IVF BOLUSED. STAT LABS. Hypothyroidism - Resume patient's home dose of levothyroxine Ongoing tobaccoism - Discussed smoking cessation - Continue nicotine patch DVT prophylaxis - Patient is ambulatory DISPO: DC HOME, I SPOKE WITH PSYCHIATRIST YESTERDAY DR PENA AND HE REQUESTED DISCHARGE. DR PENA REPORTS HE HAS NOT BEEN SUICIDAL FOR AT LEAST TWO DAY. NIKOLE REPORTS HE IS NOT SUICIDAL AND IS HAPPY TO DC HOME. HE AGREES TO SEE ME IN MY OFFICE AND FOLLOWUP WITH PSYCHIATRY. FOLLOWUP WITH UROLOGY. Dominik Barton MD May 19, 2017 10:14
[2017-05-19] MEDS: TAMSULOSIN HCL 0.4 MG CAP PO SCH (12:12)
[2017-05-19] MEDS ORDERED: NALOXONE HCL 0.4 MG/ML AMP IV PUSH ONE (12:15)
[2017-05-19] MEDS ORDERED: SODIUM CHLOR 0.9% 250 ML INJ 250 ML IV ONE (12:15)
[2017-05-19] MEDS: NICOTINE 21 MG/24 HR PATCH T-DERMAL SCH (12:22)
[2017-05-19 13:22] VITALS: BP 96/45; PULSE 61; RESP 18; TEMP 97.6; O2SAT 98
[2017-05-19] MEDS ORDERED: VENL75TA PO (13:42)
[2017-05-19] MEDS ORDERED: TRAZ50TA12 PO (13:42)
[2017-05-19] MEDS ORDERED: LEVO.075 PO (13:44)
[2017-05-19] MEDS ORDERED: TAMS5CAP PO (13:44)
[2017-05-19 13:49] VITALS: BP 94/47; PULSE 62; O2SAT 98
[2017-05-19 14:28] VITALS: BP 111/52; PULSE 69; RESP 18; TEMP 97.7; O2SAT 96
[2017-05-19] MEDS: VENLAFAXINE HCL 37.5 MG TAB PO SCH (16:00)
== END 2017-05-19 16:00 | disposition home or self-care (01) | DRG 876 ==
LOC: H4EA 22:30
PROVIDERS: ADMIT Student in an Organized Health Care Education/Training Program; ATTEND Student in an Organized Health Care Education/Training Program
PROC: 0TBB8ZZ Excision of Bladder, Via Natural or Artificial Opening Endoscopic (ICD-10-PCS; principal; 2017-05-16 10:33)
DX: F33.2 Major depressive disorder, recurrent severe without psychotic features (principal); R45.851 Suicidal ideations; I95.9 Hypotension, unspecified; C67.1 Malignant neoplasm of dome of bladder; N13.8 Other obstructive and reflux uropathy; I10 Essential (primary) hypertension; F40.01 Agoraphobia with panic disorder; F17.210 Nicotine dependence, cigarettes, uncomplicated; M79.7 Fibromyalgia; E03.9 Hypothyroidism, unspecified; N40.1 Benign prostatic hyperplasia with lower urinary tract symptoms
CPT/HCPCS: 36415; 76775; 76937; 80048; 80061; 81001; 84443; 85025; 85610; 86850; 86900; 86901; 88307; 93005; J0290; J1100; J1170; J1580; J2175; J2250; J2270; J2405; J3010; J7050; Q0163